=== PATIENT | male | born 1935 | race Caucasian/White ===

== ENCOUNTER 2016-03-30 19:12 | Inpatient (IN) | payer OTHER ==
[2016-03-30 19:27] VITALS: BMI 25.2
[2016-03-30 21:00] LABS: MCH 29.2 pg (25.7-33.7); MCHC 31.7 g/dl (32.0-35.9); MEAN PLT VOLUME 7.9 fl (7.5-11.1); PLATELET COUNT 262 K/MM3 (134-434); RDW 17.8 % (11.9-15.9); WHITE BLOOD COUNT 15.2 K/mm3 (4.0-10.0)
[2016-03-30 21:34] LABS: ALBUMIN 2.7 g/dl (3.4-5.0); CALCIUM 8.4 mg/dL (8.5-10.1); CREATININE 1.3 mg/dL (0.7-1.3)
[2016-03-30 21:39] LABS: BILIRUBIN,TOTAL 0.6 mg/dL (0.2-1.0); TOT PROT 4.7 g/dl (6.4-8.2); TROPONIN I 0.02 ng/ml (0.00-0.05)
[2016-03-30 22:25] LABS: INR 1.41 (0.82-1.09); PROTHROMBIN TIME (PATIENT) 15.6 SEC (9.98-11.88)
[2016-03-30 22:27] LABS: ACTIVATED PTT 23.6 SECONDS (26.9-34.4)
--- NOTE | 2016-03-30 22:39 | PDOC ---
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 The patient was recently admitted and discharged. He had a CTA performed which showed his AAA repair and an untreated left iliac artery aneurysm. The patient was observed and discharged. The patient is not the greatest historian. He denies chest pain, shortness of breath, headache and dizziness. He denies fever, chills, nausea, vomit, diarrhea and constipation. He denies dysuria, frequency, urgency and hematuria. PCP - Dr. Muñiz <Binta Herrera - Last Filed: 03/31/16 00:00> - General History Source: Patient, Old Records Exam Limitations: Dementia <Elmer Sanchez - Last Filed: 03/31/16 00:49> - General Chief Complaint: Pain, Acute Stated Complaint: S.O.B. 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) HTN: Yes Hypercholesterolemia: Yes Suicide Attempt (Hx): No - Surgical History Abdominal Surgery: Yes (Hernia Repair) Cardiac Surgery: Yes (Stent) - Immunization History Immunization Up to Date: Yes - Psycho/Social/Smoking Cessation Hx Anxiety: No Suicidal Ideation: No Smoking History: Former smoker Have you smoked in the past 12 months: No Number of Cigarettes Smoked Daily: 30 If you are a former smoker, when did you quit?: 13 yrs ago Cigars Per Day: 0 Information on smoking cessation initiated: No Hx Alcohol Use: No Drug/Substance Use Hx: No Substance Use Type: None Hx Substance Use Treatment: No <Elmer Sanchez - Last Filed: 03/31/16 00:49> - Past Medical History Allergies/Adverse Reactions: Allergies Allergy/AdvReac Type Severity Reaction Status Date / Time No Known Allergies Allergy Verified 03/30/16 19:35 Home Medications: Ambulatory Orders Acetaminophen [Pain Relief] 650 mg PO Q6H PRN 02/16/16 Aspirin [Aspirin EC] 81 mg PO DAILY 02/16/16 Bisacodyl [Correctol] 5 mg PO DAILY PRN 02/16/16 Mometasone Furoate [Asmanex] 1 inh IH BID 02/16/16 Albuterol 2.5/Ipratropium 0.5 [Duoneb -] 1 amp NEB QIDR amp 03/27/16 Atorvastatin Ca [Lipitor] 10 mg PO HS tablet 03/27/16 Isosorbide Mononitrate [Imdur -] 30 mg PO DAILY tab.sr.24h 03/27/16 Labetalol HCl [Normodyne -] 100 mg PO DAILY tablet 03/27/16 Lisinopril [Prinivil] 5 mg PO DAILY tablet 03/27/16 Metronidazole [Flagyl -] 500 mg PO TID #27 tablet 03/27/16 Pantoprazole Sodium [Protonix] 40 mg PO DAILY #30 tablet. 03/27/16 Prednisone 10 mg PO DAILY #32 tablet 03/27/16 Roflumilast [Daliresp -] 500 mcg PO DAILY tablet 03/27/16 Review of Systems - Review of Systems Able to Perform ROS?: Yes Comments:: 03/30/16 23:15 GENERAL/CONSTITUTIONAL: No fever or chills. No weakness. HEAD, EYES, EARS, NOSE AND THROAT: No change in vision. No ear pain or discharge. No sore throat. CARDIOVASCULAR: No chest pain or shortness of breath. RESPIRATORY: No cough, wheezing, or hemoptysis. GASTROINTESTINAL: No nausea, vomiting, diarrhea or constipation. GENITOURINARY: No dysuria, frequency, or change in urination. MUSCULOSKELETAL: No joint or muscle swelling or pain. No neck or back pain. SKIN: No rash NEUROLOGIC: No headache, vertigo, loss of consciousness, or change in strength/ sensation. ENDOCRINE: No increased thirst. No abnormal weight change. HEMATOLOGIC/LYMPHATIC: No anemia, easy bleeding, or history of blood clots. ALLERGIC/IMMUNOLOGIC: No hives or skin allergy. <Binta Herrera - Last Filed: 03/31/16 00:00> *Physical Exam - Vital Signs Last Vital Signs Temp Pulse Resp BP Pulse Ox 110 H 18 113/68 97 03/30/16 19:21 03/30/16 19:21 03/30/16 19:21 03/30/16 19:21 - Physical Exam Comments: 03/30/16 23:15 GENERAL: Awake, alert, and fully oriented, in no acute distress HEAD: No signs of trauma EYES: PERRLA, EOMI, sclera anicteric, conjunctiva clear ENT: Auricles normal inspection, hearing grossly normal, nares patent, oropharynx clear without exudates. Moist mucosa NECK: Normal ROM, supple, no lymphadenopathy, JVD, or masses LUNGS: (+) Tachypnea. Breath sounds equal, clear to auscultation bilaterally. No wheezes, and no crackles HEART: Regular rate and rhythm, normal S1 and S2, no murmurs, rubs or gallops ABDOMEN: (+) multiple ecchymosis over diffuse abdomen. Soft, nontender, normoactive bowel sounds. No guarding, no rebound. No masses EXTREMITIES: (+) 2+ edema RLE, trace pedal edema LLE, Normal range of motion. No clubbing or cyanosis. No cords, erythema, or tenderness NEUROLOGICAL: Cranial nerves II-XII intact. Normal speech, normal gait. Sensation intact in upper and lower extremities. 5/5 motor strength in upper and lower extremities. No pronator drift. Finger to nose intact. Rapid alternations intact. SKIN: Warm, Dry, normal turgor, no rashes or lesions noted. <Binta Herrera - Last Filed: 03/31/16 00:00> - Vital Signs Last Vital Signs Temp Pulse Resp BP Pulse Ox 110 H 18 113/68 97 03/30/16 19:21 03/30/16 19:21 03/30/16 19:21 03/30/16 19:21 <Elmer Sanchez - Last Filed: 03/31/16 00:49> Heart Score/ECG Review #1 ECG reviewed & interpreted by me at: 20:10 03/31/16 00:22 NSR 91, Q wave V1-V2, no std/ellen, normal axis, normal intervals, QTC 452 msec <Elmer Sanchez - Last Filed: 03/31/16 00:49> ED Treatment Course - LABORATORY CBC & Chemistry Diagram: 03/30/16 20:49 03/30/16 20:49 - ADDITIONAL ORDERS Additional order review: Laboratory Results 03/30/16 03/30/16 03/30/16 20:49 20:49 20:49 INR 1.41 H PTT (Actin FS) 23.6 L Sodium 143 Potassium 3.5 Chloride 103 Carbon Dioxide 33 H Anion Gap 7 L BUN 30 H Creatinine 1.3 D Creat Clearance w eGFR 53.39 Random Glucose 134 H Lactic Acid 1.964 Calcium 8.4 L Total Bilirubin 0.6 D AST 25 D ALT 19 Alkaline Phosphatase 55 Creatine Kinase 57 Troponin I 0.02 Total Protein 4.7 L Albumin 2.7 L 03/30/16 20:49 RBC 3.56 L MCV 92.0 MCHC 31.7 L RDW 17.8 H MPV 7.9 Neutrophils % 85.0 H Lymphocytes % 5.0 L D Monocytes % 4.0 - RADIOLOGY Radiograph Interpretation: 03/31/16 00:00 CT chest, abdomen and pelvis without contrast was read by Ata Luo MD 03/30/2016 23:54 EST COMPARISON: none FINDINGS: CT chest:There is no aortic aneurysm. There is no significant mediastinal or hilar adenopathy. The heart size is normal. The trachea and bronchi are patent. There is no pleural or pericardial effusion. Severe diffuse emphysema is noted. There is a 2.4 x 2.17 spiculated mass in the lateral base of the left upper lobe tethering to the subjacent pleura, highly suspicious for malignant neoplasm. There is scarring in the right lung apex. CT abdomen and pelvis: Status post left nephrectomy. Normal unenhanced liver, gallbladder, pancreas, spleen, adrenal glands and right kidney. The stomach and small bowel are normal. There is moderate inflammation the right colon and proximal transverse colon which may be due to infection or ischemia. No bowel obstruction. There is a small amount of ascites but no abscess or free air. There is a 7.5 x 7.4 cm distal aortic right common iliac artery aneurysm which has been stented without evidence of leak There is any 2.4 cm left internal iliac artery aneurysm aortic aneurysm. There is no significant retroperitoneal lymphadenopathy. There is no evidence of appendicitis, although the appendix is not clearly visualized. The urinary bladder and prostate gland are normal. There is no significant pelvic lymphadenopathy. IMPRESSION: 2.4 cm left upper lobe mass is highly suspicious for primary lung neoplasm. Severe emphysema. Moderate proximal colitis may be due to infection or ischemia. Small amount of ascites without abscess or free air. Stented 7.5 cm distal aortic and right common iliac artery aneurysm without evidence of leak. 2.4 cm left internal iliac artery aneurysm. <Binta Herrera - Last Filed: 03/31/16 00:00> - LABORATORY CBC & Chemistry Diagram: 03/30/16 20:49 03/30/16 20:49 - ADDITIONAL ORDERS Additional order review: Laboratory Results 03/30/16 03/30/16 20:49 20:49 Sodium 143 Potassium 3.5 Chloride 103 Carbon Dioxide 33 H Anion Gap 7 L BUN 30 H Creatinine 1.3 D Creat Clearance w eGFR 53.39 Random Glucose 134 H Lactic Acid 1.964 Calcium 8.4 L Total Bilirubin 0.6 D AST 25 D ALT 19 Alkaline Phosphatase 55 Creatine Kinase 57 Troponin I 0.02 Total Protein 4.7 L Albumin 2.7 L 03/30/16 20:49 RBC 3.56 L MCV 92.0 MCHC 31.7 L RDW 17.8 H MPV 7.9 Neutrophils % 85.0 H Lymphocytes % 5.0 L D Monocytes % 4.0 - RADIOLOGY Radiology Studies Ordered: Category Date Time Status ABDOMEN & PELVIS CT W/O CONTR [CT] Stat CT Scan 03/30/16 22:[address] WITHOUT CONTRAST [CT] Stat CT Scan 03/30/16 22:13 Ordered CHEST X-RAY PORTABLE* [RAD] Stat Radiology 03/30/16 19:47 Taken <Elmer Sanchez - Last Filed: 03/31/16 00:49> Medical Decision Making - Medical Decision Making 03/30/16 22:38 A portion of this note was documented by scribe services under my direction. I have reviewed the details of the note, within reason, and agree with the documentation with the following case summary and management plan written by me. Patient treated in the ED. Nursing notes are reviewed and incorporated into the medical decision-making. Vital signs reviewed. Peripheral IV access obtained by the nurse, laboratory studies are drawn and sent, reviewed and interpreted by myself. Vital Signs Temp Pulse Resp BP Pulse Ox 110 H 18 113/68 97 03/30/16 19:21 03/30/16 19:21 03/30/16 19:21 03/30/16 19:21 80 year old male with PMH of HTN, HLD, CAD s/p stent, CKD, AAA, COPD on 2L home oxygen presents to the ED for abdominal pain, mainly in the right lower quadrant and some SOB. The patient was recently admitted and discharged. He had a CTA performed which showed his AAA repair and an untreated left iliac artery aneurysm. He was evaluated by vascular surgery at that time and was cleared. The patient was observed and discharged. The patient not the greatest historian but reports that today he has had persistent RLQ pain and some SOB. Denies chest pain. Unable to further characterize. Given the history of untreated left iliary artery aneurmsym and persistent abdominal pain, will repeat CT to r/o AAA leak (though probably less likely). Will obtain labs including WBC( as pt has had elevated WBC on prior visit). Will need to RG. Will evaluate with chest xray and ECG and admit to the hospital for further evaluation. 03/31/16 00:23 CBC, BMP 03/30/16 20:49 03/30/16 20:49 CMP Sodium 143 mmol/L (136-145) 03/30/16 20:49 Potassium 3.5 mmol/L (3.5-5.1) 03/30/16 20:49 Chloride 103 mmol/L (98-107) 03/30/16 20:49 Carbon Dioxide 33 mmol/L (21-32) H 03/30/16 20:49 Anion Gap 7 (8-16) L 03/30/16 20:49 BUN 30 mg/dL (7-18) H 03/30/16 20:49 Creatinine 1.3 mg/dL (0.7-1.3) D 03/30/16 20:49 Creat Clearance w eGFR 53.39 (>60) 03/30/16 20:49 Random Glucose 134 mg/dL (74-106) H 03/30/16 20:49 Lactic Acid 1.964 mmol/L (0.4-2.0) 03/30/16 20:49 Calcium 8.4 mg/dL (8.5-10.1) L 03/30/16 20:49 Total Bilirubin 0.6 mg/dL (0.2-1.0) D 03/30/16 20:49 AST 25 U/L (15-37) D 03/30/16 20:49 ALT 19 U/L (12-78) 03/30/16 20:49 Alkaline Phosphatase 55 U/L (45-117) 03/30/16 20:49 Creatine Kinase 57 IU/L (39-308) 03/30/16 20:49 Troponin I 0.02 ng/ml (0.00-0.05) 03/30/16 20:49 Total Protein 4.7 g/dl (6.4-8.2) L 03/30/16 20:49 Albumin 2.7 g/dl (3.4-5.0) L 03/30/16 20:49 CT scan shows a 2.4 x 1.27 spiculate mass in the left upper base which appears to be larger than the one in Dec 2015. The aorta appears stable at this time. CT scan demonstrates moderate colitis, infectious vs. ischemic. Given last GI note, will need to trend lactates and watch abdomen. Will draw blood cultures and give IV zosyn and IV flagyl. Case discussed with Dr. Campoverde. He accepts patient for med/surg admission. He was made aware of the spictulate mass findings in the lung. Case discussed in detail with admitting physician including history, physical exam and ancillary studies. Admitting physician has assumed care for the patient, will follow all pending diagnostics and will complete the evaluation and treatment. <Elmer Sanchez - Last Filed: 03/31/16 00:49> *DC/Admit/Observation/Transfer - Attestations Scribe Attestion: 03/30/16 23:17 Documentation prepared by Binta Herrera, acting as biomedical field service engineer for Elmer Sanchez MD, MD <Binta Herrera - Last Filed: 03/31/16 00:00> - Discharge Dispostion Admit: Yes <Elmer Sanchez - Last Filed: 03/31/16 00:49> Diagnosis at time of Disposition: Non-specific colitis, Lung mass - Discharge Dispostion Condition at time of disposition: Stable - Referrals Referrals: Shawn Muñiz MD [Primary Care Provider] -
[2016-03-31] MEDS ORDERED: METRONIDAZOLE 500 MG PREMIXED 100 ML IVPB ONE ×2 (00:48→00:53)
[2016-03-31] MEDS ORDERED: PIPERACILLIN/TAZOB 3.375 GM/50 ML PRE-DOCKED IVPB ONE (00:49)
[2016-03-31] MEDS ORDERED: PIPERACILLIN/TAZOB 3.375 GM 50 ML IVPB ONE (00:53)
[2016-03-31 01:35] LABS: URINE APPEARANCE CLEAR; URINE BILIRUBIN 1+ (NEGATIVE); URINE BLOOD NEGATIVE (NEGATIVE); URINE COLOR DK. ORANGE; URINE GLUCOSE (UA) NEGATIVE (NEGATIVE); URINE KETONE TRACE (NEGATIVE); URINE LEUK ESTERASE NEGATIVE (NEGATIVE); URINE NITRITE POSITIVE (NEGATIVE); URINE PROTEIN TRACE (NEGATIVE); URINE UROBILINOGEN 0.2 E.U/dl E.U./dl (0.2-1.0)
[2016-03-31 01:51] LABS: URINE BACTERIA FEW /hpf (NONE SEEN); URINE HYALINE CAST 1 /lpf; URINE MUCUS RARE; URINE RBC 1 /hpf (0-3); URINE WBC 1 /hpf (3-5)
[2016-03-31] MEDS ORDERED: BISACODYL 5 MG TABLET.DR (FP) PO PRN (02:22)
[2016-03-31] MEDS ORDERED: ACETAMINOPHEN 325 MG TABLET (FP) PO PRN (02:22)
[2016-03-31] MEDS ORDERED: PT OWN MED DRAWER 7, Y5N ONE ×2 (05:50→09:14)
[2016-03-31] MEDS ORDERED: metroNIDAZOLE 500 MG TABLET PO SCH (06:00)
[2016-03-31] MEDS: metroNIDAZOLE 250 MG TABLET PO SCH ×2 (06:16→14:49)
[2016-03-31 07:41] LABS: MCH 30.2 pg (25.7-33.7); MCHC 32.7 g/dl (32.0-35.9); MEAN CELL VOLUME 92.4 fl (80-96); MEAN PLT VOLUME 7.9 fl (7.5-11.1); PLATELET COUNT 222 K/MM3 (134-434); WHITE BLOOD COUNT 11.8 K/mm3 (4.0-10.0)
[2016-03-31 08:05] LABS: ALBUMIN 2.5 g/dl (3.4-5.0); ANION GAP 6 (8-16); CALCIUM 8.1 mg/dL (8.5-10.1); CO2 33 mmol/L (21-32); GLUCOSE,RANDOM 85 mg/dL (74-106)
[2016-03-31 08:12] LABS: ALK PHOS 49 U/L (45-117); BILIRUBIN,TOTAL 0.6 mg/dL (0.2-1.0); CREATININE 1.1 mg/dL (0.7-1.3); SGOT/AST 21 U/L (15-37); SGPT/ALT 18 U/L (12-78); TOT PROT 4.5 g/dl (6.4-8.2); TROPONIN I 0.02 ng/ml (0.00-0.05)
[2016-03-31 09:39] LABS: METAMYELOCYTE 4 % (0-2)
[2016-03-31] MEDS: ASPIRIN COATED 81 MG TABLET.EC PO SCH (09:51)
[2016-03-31] MEDS: PANTOPRAZOLE 40 MG TABLET (FP) PO SCH (09:51)
[2016-03-31] MEDS: ISOSORBIDE MONONITRATE 30 MG TAB.SR.24H (FP) PO SCH (09:51)
[2016-03-31] MEDS: LABETALOL HCL 100 MG TABLET (FP) PO SCH (09:51)
[2016-03-31] MEDS: LISINOPRIL 5 MG TABLET (FP) PO SCH (09:51)
[2016-03-31] MEDS: ROFLUMILAST 500 MCG TABLET PO SCH (09:52)
[2016-03-31] MEDS: MOMETASONE FUROATE 220 MCG/IH INHALER IH SCH ×2 (09:52→22:00)
[2016-03-31] MEDS ORDERED: predniSONE 10 MG TABLET (UD) PO SCH (10:00)
--- NOTE | 2016-03-31 10:07 | EKG ---
Test Reason : Blood Pressure : / mmHG Vent. Rate : 091 BPM Atrial Rate : 091 BPM P-R Int : 120 ms QRS Dur : 080 ms QT Int : 368 ms P-R-T Axes : 061 026 041 degrees QTc Int : 452 ms NORMAL SINUS RHYTHM SEPTAL INFARCT , AGE UNDETERMINED ABNORMAL ECG WHEN COMPARED WITH ECG OF 24-MAR-2016 07:56, T WAVE INVERSION NO LONGER EVIDENT IN INFERIOR LEADS Confirmed by MD DIANE, SHASHA ([id number]) on 03/31/2016 10:07:20 AM Referred By: Overread By: SHASHA CONTRERAS MD
[2016-03-31] MEDS: ALBUTEROL SO4 2.5/IPRATROPIUM 0.5 INH SOL 3 ML VIAL.NEB. NEB SCH ×2 (11:01→17:10)
--- NOTE | 2016-03-31 11:55 | CONSULT ---
Consult Consult Specialty:: PULMONARY Referred by:: NORMA Reason for Consultation:: SOB/COPD - History of Present Illness Chief Complaint: SOB/COUGH/ABD PAIN History of Present Illness: 80 [place] SPEAKING MALE JUST DISCHARGED 4 DAYS AGO WHEN HE HAD BEEN ADMITTED FOR SOB/ABD PAIN. W/U AT THE TIME WAS COMPLETED. HE PRESENTS TODAY WITH THE SAME COMPLAINTS. 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 No: AFIB Pulmonary: Yes: Asthma, COPD, O2 Dependent Gastrointestinal: Yes: GERD, Other (COLITIS) Renal/: Yes: Renal Inusuff, Renal Calculi Heme/Onc: Yes: Anemia Psych: No: Addictions Endocrine: Yes: Diabetes Mellitus Additional Medical History: takes asa daily - Past Surgical History Past Surgical History: Yes: Nephrectomy (Left as child for infectiion back in [place]) - Alcohol/Substance Use Hx Alcohol Use: No History of Substance Use: reports: None - Smoking History Smoking history: Former smoker Have you smoked in the past 12 months: No Aproximately how many cigarettes per day: 30 If you are a former smoker, when did you quit?: 13 yrs ago - Social History Usual Living Arrangement: With Child ADL: Independent 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 Place of : Other History of Recent Travel: No Home Medications - Allergies Allergies/Adverse Reactions: Allergies Allergy/AdvReac Type Severity Reaction Status Date / Time No Known Allergies Allergy Verified 03/30/16 19:35 - Home Medications Home Medications: Ambulatory Orders Acetaminophen [Pain Relief] 650 mg PO Q6H PRN 02/16/16 Aspirin [Aspirin EC] 81 mg PO DAILY 02/16/16 Bisacodyl [Correctol] 5 mg PO DAILY PRN 02/16/16 Mometasone Furoate [Asmanex] 1 inh IH BID 02/16/16 Albuterol 2.5/Ipratropium 0.5 [Duoneb -] 1 amp NEB QIDR amp 03/27/16 Atorvastatin Ca [Lipitor] 10 mg PO HS tablet 03/27/16 Isosorbide Mononitrate [Imdur -] 30 mg PO DAILY tab.sr.24h 03/27/16 Labetalol HCl [Normodyne -] 100 mg PO DAILY tablet 03/27/16 Lisinopril [Prinivil] 5 mg PO DAILY tablet 03/27/16 Metronidazole [Flagyl -] 500 mg PO TID #27 tablet 03/27/16 Pantoprazole Sodium [Protonix] 40 mg PO DAILY #30 tablet. 03/27/16 Prednisone 10 mg PO DAILY #32 tablet 03/27/16 Roflumilast [Daliresp -] 500 mcg PO DAILY tablet 03/27/16 Family Disease History - Family Disease History Family Disease History: Other: Father ( 80's), Mother (") Review of Systems Unable to obtain ROS, reason: UNABLE TO OBTAIN Physical Exam Vital Sings: Vital Signs Temperature 98.4 F 03/31/16 06:00 Pulse Rate 93 H 03/31/16 11:00 Respiratory Rate 18 03/31/16 06:00 Blood Pressure 133/70 03/31/16 06:00 O2 Sat by Pulse Oximetry (%) 98 03/31/16 11:00 Constitutional: Yes: Anxious Eyes: Yes: Conjunctiva Clear, EOM Intact HENT: Yes: Normocephalic Neck: Yes: Trachea Midline Cardiovascular: Yes: S1, S2 Respiratory: Yes: Diminished (DIFFUSE BILATERAL) Gastrointestinal: Yes: Tenderness (TO PALPATION) Edema: LLE: 1+, RLE: 1+ Labs: CBC, BMP 03/31/16 06:00 03/31/16 06:00 Imaging - Results Chest X-ray: Image Reviewed Cat Scan: Image Reviewed EKG: Report Reviewed Problem List - Problems (1) Colitis Code(s): K52.9 - NONINFECTIVE GASTROENTERITIS AND COLITIS, UNSPECIFIED (2) Lung mass Code(s): R91.8 - OTHER NONSPECIFIC ABNORMAL FINDING OF LUNG FIELD (3) Abdominal pain Code(s): R10.9 - UNSPECIFIED ABDOMINAL PAIN Qualifiers: Abdominal location: generalized Qualified Code(s): R10.84 - Generalized abdominal pain (4) Asthma exacerbation in COPD Code(s): J44.1 - CHRONIC OBSTRUCTIVE PULMONARY DISEASE W (ACUTE) EXACERBATION J45.901 - UNSPECIFIED ASTHMA WITH (ACUTE) EXACERBATION (5) CAD S/P percutaneous coronary angioplasty Code(s): I25.10 - ATHSCL HEART DISEASE OF [place] CORONARY ARTERY W/O ANG PCTRS Z98.61 - CORONARY ANGIOPLASTY STATUS Assessment/Plan A/P Abdominal Pain/colitis ? ischemic AAA s/p EVAR Acute on Chronic Hypoxic Respiratory Failure CAD h/o nephrectomy RUL Lung Nodule -> suspicious for malignancy - Medrol 20 mg Q8 - inhaled bronchodilators - O2 to keep SpO2 >90% - BiPAP as needed to assist in work of breathing - pain control - DVT prophylaxis - Will need follow up of RUL lesion after he is stable (will be following at [facility]). - GI opinion Fantasma SPENCER MD
[2016-03-31] MEDS: methylPREDNISolone NA SUCC 40 MG/1 ML VIAL IVPB SCH ×2 (12:50→18:09)
--- NOTE | 2016-03-31 13:09 | HP ---
Admitting History and Physical - Primary Care Physician PCP: Kassandra Sanders - Admission Chief Complaint: ABD PAIN/RECTAL BLEED History of Present Illness: 80 Y/O MALE HISTORY OF LONG TIME TOBACCO USE PRESENTS WITH ABDOMINAL PAIN WITH RECTAL BLEED, AND DYSPNEA. PATIENT DIAGNOSED WITH LUNG MASS 4 MONTHS AGO AND WAS SCHEDULED IN [facility] FOR LUNG VOLUME REDUCTION AND BIOPSY BUT NEVER WENT AND HE AND HIS FAMILY HAVE REFUSED AND AGGRESSIVE INTERVENTIONS. 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 No: AFIB Pulmonary: Yes: Asthma, COPD, O2 Dependent Gastrointestinal: Yes: GERD, Other (COLITIS) Renal/: Yes: Renal Inusuff, Renal Calculi Heme/Onc: Yes: Anemia Psych: No: Addictions Endocrine: Yes: Diabetes Mellitus - Past Surgical History Past Surgical History: Yes: Nephrectomy (Left as child for infectiion back in [place]) - Smoking History Smoking history: Former smoker Have you smoked in the past 12 months: No Aproximately how many cigarettes per day: 30 If you are a former smoker, when did you quit?: 13 yrs ago - Alcohol/Substance Use Hx Alcohol Use: No History of Substance Use: reports: None - Social History ADL: Independent 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 History of Recent Travel: No Home Medications - Allergies Allergies/Adverse Reactions: Allergies Allergy/AdvReac Type Severity Reaction Status Date / Time No Known Allergies Allergy Verified 03/30/16 19:35 - Home Medications Home Medications: Ambulatory Orders Acetaminophen [Pain Relief] 650 mg PO Q6H PRN 02/16/16 Aspirin [Aspirin EC] 81 mg PO DAILY 02/16/16 Bisacodyl [Correctol] 5 mg PO DAILY PRN 02/16/16 Mometasone Furoate [Asmanex] 1 inh IH BID 02/16/16 Albuterol 2.5/Ipratropium 0.5 [Duoneb -] 1 amp NEB QIDR amp 03/27/16 Atorvastatin Ca [Lipitor] 10 mg PO HS tablet 03/27/16 Isosorbide Mononitrate [Imdur -] 30 mg PO DAILY tab.sr.24h 03/27/16 Labetalol HCl [Normodyne -] 100 mg PO DAILY tablet 03/27/16 Lisinopril [Prinivil] 5 mg PO DAILY tablet 03/27/16 Metronidazole [Flagyl -] 500 mg PO TID #27 tablet 03/27/16 Pantoprazole Sodium [Protonix] 40 mg PO DAILY #30 tablet. 03/27/16 Prednisone 10 mg PO DAILY #32 tablet 03/27/16 Roflumilast [Daliresp -] 500 mcg PO DAILY tablet 03/27/16 Family Disease History - Family Disease History Family Disease History: Other: Father ( 80's), Mother (") Review of Systems - Review of Systems Constitutional: reports: Weakness Eyes: reports: No Symptoms HENT: reports: No Symptoms Neck: reports: No Symptoms Cardiovascular: reports: Shortness of Breath Respiratory: reports: Cough, SOB, SOB on Exertion Gastrointestinal: reports: Abdominal Pain, Rectal Bleeding Genitourinary: reports: No Symptoms Musculoskeletal: reports: Muscle Weakness Integumentary: reports: No Symptoms Neurological: reports: Weakness Endocrine: reports: No Symptoms Hematology/Lymphatic: reports: No Symptoms Physical Examination Vital Signs: Vital Signs Temperature 98.4 F 03/31/16 06:00 Pulse Rate 93 H 03/31/16 11:00 Respiratory Rate 18 03/31/16 06:00 Blood Pressure 133/70 03/31/16 06:00 O2 Sat by Pulse Oximetry (%) 98 03/31/16 11:00 Constitutional: Yes: Moderate Distress Eyes: Yes: WNL HENT: Yes: WNL Neck: Yes: WNL Cardiovascular: Yes: Tachycardia Respiratory: Yes: Diminished, On Nasal O2, Poor Air Entry, Rales, SOB Gastrointestinal: Yes: Distention, Tenderness ...Rectal Exam: Yes: Other Musculoskeletal: Yes: Muscle Weakness Extremities: Yes: WNL Edema: Yes Peripheral Pulses WNL: Yes Integumentary: Yes: WNL Wound/Incision: Yes: Clean/Dry Neurological: Yes: WNL ...Motor Strength: WNL Psychiatric: Yes: WNL Labs: CBC, BMP 03/31/16 06:00 03/31/16 06:00 Imaging - Results Cat Scan: Report Reviewed Problem List - Problems (1) Colitis Code(s): K52.9 - NONINFECTIVE GASTROENTERITIS AND COLITIS, UNSPECIFIED (2) Lung mass Code(s): R91.8 - OTHER NONSPECIFIC ABNORMAL FINDING OF LUNG FIELD (3) AAA (abdominal aortic aneurysm) without rupture Code(s): I71.4 - ABDOMINAL AORTIC ANEURYSM, WITHOUT RUPTURE (4) Abdominal pain Code(s): R10.9 - UNSPECIFIED ABDOMINAL PAIN Qualifiers: Abdominal location: generalized Qualified Code(s): R10.84 - Generalized abdominal pain (5) Acute on chronic respiratory failure with hypoxia and hypercapnia Code(s): J96.21 - ACUTE AND CHRONIC RESPIRATORY FAILURE WITH HYPOXIA J96.22 - ACUTE AND CHRONIC RESPIRATORY FAILURE WITH HYPERCAPNIA (6) Acute respiratory failure with hypercapnia Code(s): J96.02 - ACUTE RESPIRATORY FAILURE WITH HYPERCAPNIA (7) Asthma exacerbation in COPD Code(s): J44.1 - CHRONIC OBSTRUCTIVE PULMONARY DISEASE W (ACUTE) EXACERBATION J45.901 - UNSPECIFIED ASTHMA WITH (ACUTE) EXACERBATION (8) CAD S/P percutaneous coronary angioplasty Code(s): I25.10 - ATHSCL HEART DISEASE OF [place] CORONARY ARTERY W/O ANG PCTRS Z98.61 - CORONARY ANGIOPLASTY STATUS (9) COPD exacerbation Code(s): J44.1 - CHRONIC OBSTRUCTIVE PULMONARY DISEASE W (ACUTE) EXACERBATION (10) Chronic kidney disease Code(s): N18.9 - CHRONIC KIDNEY DISEASE, UNSPECIFIED (11) Emphysema of lung Code(s): J43.9 - EMPHYSEMA, UNSPECIFIED Assessment/Plan IV ABX FOR ACUTE COLITIS LIQUID DIET STEROIDS NEBS RESP SUPPORT GI EVAL SNF TO [facility]
[2016-03-31] MEDS: LEVOFLOXACIN 500 MG IVPB 100 ML IVPB SCH (13:15)
[2016-03-31] MEDS: METRONIDAZOLE 500 MG PREMIXED 100 ML IVPB SCH ×2 (14:49→18:09)
--- NOTE | 2016-03-31 17:06 | CONSULT ---
Consult Consult Specialty:: GI Referred by:: Dr Sanders Reason for Consultation:: Abdominal pain - History of Present Illness History of Present Illness: 80 M seen last week for same problem, now back with abdominal pain. He has a h/ o AAA, CAD with stent, O2-dependent COPD, CKD and HTN, now with abdominal pain and a CT c/w regional [id number] which I believe has an ischemic etiology. Rec IVF and Ab Rx at this time. Poor candidated for procedures - History Source History Provided By: Medical Record Limitations to Obtaining History: No Limitations - Past Medical History DEAF INTERPRETER: No: Alzheimer's Cardio/Vascular: Yes: CAD (stent). No: AFIB Pulmonary: Yes: Asthma, COPD, O2 Dependent Gastrointestinal: Yes: GERD, Other (COLITIS) Renal/: Yes: Renal Inusuff, Renal Calculi Psych: No: Addictions Endocrine: Yes: Diabetes Mellitus Additional Medical History: takes asa daily - Past Surgical History Past Surgical History: Yes: Nephrectomy (Left as child for infectiion back in [place]) - Alcohol/Substance Use Hx Alcohol Use: No History of Substance Use: reports: None - Smoking History Smoking history: Former smoker Have you smoked in the past 12 months: No Aproximately how many cigarettes per day: 30 If you are a former smoker, when did you quit?: 13 yrs ago - Social History Usual Living Arrangement: With Child ADL: Independent 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 History of Recent Travel: No Home Medications - Allergies Allergies/Adverse Reactions: Allergies Allergy/AdvReac Type Severity Reaction Status Date / Time No Known Allergies Allergy Verified 03/30/16 19:35 - Home Medications Home Medications: Ambulatory Orders Acetaminophen [Pain Relief] 650 mg PO Q6H PRN 02/16/16 Aspirin [Aspirin EC] 81 mg PO DAILY 02/16/16 Bisacodyl [Correctol] 5 mg PO DAILY PRN 02/16/16 Mometasone Furoate [Asmanex] 1 inh IH BID 02/16/16 Albuterol 2.5/Ipratropium 0.5 [Duoneb -] 1 amp NEB QIDR amp 03/27/16 Atorvastatin Ca [Lipitor] 10 mg PO HS tablet 03/27/16 Isosorbide Mononitrate [Imdur -] 30 mg PO DAILY tab.sr.24h 03/27/16 Labetalol HCl [Normodyne -] 100 mg PO DAILY tablet 03/27/16 Lisinopril [Prinivil] 5 mg PO DAILY tablet 03/27/16 Metronidazole [Flagyl -] 500 mg PO TID #27 tablet 03/27/16 Pantoprazole Sodium [Protonix] 40 mg PO DAILY #30 tablet. 03/27/16 Prednisone 10 mg PO DAILY #32 tablet 03/27/16 Roflumilast [Daliresp -] 500 mcg PO DAILY tablet 03/27/16 Family Disease History - Family Disease History Family Disease History: Other: Father ( 80's), Mother (") Physical Exam-GI Vital Signs: Vital Signs Temperature 97.8 F 03/31/16 15:02 Pulse Rate 85 03/31/16 15:02 Respiratory Rate 20 03/31/16 15:02 Blood Pressure 91/50 03/31/16 15:02 O2 Sat by Pulse Oximetry (%) 98 03/31/16 11:00 Constitutional: Yes: Well Nourished, Mild Distress (Patient with PBA, with frequent crying episodes) Cardiovascular: Yes: Regular Rate and Rhythm Respiratory: Yes: CTA Bilaterally Gastrointestinal Inspection: Yes: Distention (mild) ...Auscultate: Yes: Hypoactive Bowel Sounds ...Palpate: Yes: Soft, Tenderness (diffuse) Labs: CBC, BMP 03/31/16 06:00 03/31/16 06:00 INR, PTT INR 1.41 (0.82-1.09) H 03/30/16 20:49 Imaging - Results Cat Scan: Report Reviewed (R sided colitis) Assessment/Plan 80 M consulted on last week for same problem He has a h/o severe vascular disease I believe his regional colitis is ischemic in nature. Rec hydration and AbRx Procedure risks outweigh benefits Stool for C diff
--- NOTE | 2016-03-31 17:44 | CONSULT ---
Consult Consult Specialty:: Nephrology Reason for Consultation:: CKD - History of Present Illness Chief Complaint: abdominal discomfort History of Present Illness: Pt is a 80 year old male with pmhx of HTN, CKD, chol, CAD, and AAA who presents with shortness of breath and right lower abdominal pain. He was found to have colitis. I was called to evaluate him for elevated creatinine. Pt has a solitary kidney. He denies dysuria or hematuria. He complains of decreased appetite. Pt was recently discharged from the hospital. He was found to have elevated creatinine and I was called to evaluate him. He had a CTA of the abdomen on 03/24/16. - History Source History Provided By: Patient - Past Medical History Cardio/Vascular: Yes: CAD (stent) Pulmonary: Yes: Asthma, COPD, O2 Dependent Gastrointestinal: Yes: GERD, Other (COLITIS) Renal/: Yes: Renal Inusuff, Renal Calculi Psych: No: Addictions Endocrine: Yes: Diabetes Mellitus Additional Medical History: takes asa daily - Past Surgical History Past Surgical History: Yes: Nephrectomy (Left as child for infectiion back in [place]) - Alcohol/Substance Use Hx Alcohol Use: No History of Substance Use: reports: None - Smoking History Smoking history: Former smoker Have you smoked in the past 12 months: No Aproximately how many cigarettes per day: 30 If you are a former smoker, when did you quit?: 13 yrs ago - Social History Usual Living Arrangement: With Child ADL: Independent 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 History of Recent Travel: No Home Medications - Allergies Allergies/Adverse Reactions: Allergies Allergy/AdvReac Type Severity Reaction Status Date / Time No Known Allergies Allergy Verified 03/30/16 19:35 - Home Medications Home Medications: Ambulatory Orders Acetaminophen [Pain Relief] 650 mg PO Q6H PRN 02/16/16 Aspirin [Aspirin EC] 81 mg PO DAILY 02/16/16 Bisacodyl [Correctol] 5 mg PO DAILY PRN 02/16/16 Mometasone Furoate [Asmanex] 1 inh IH BID 02/16/16 Albuterol 2.5/Ipratropium 0.5 [Duoneb -] 1 amp NEB QIDR amp 03/27/16 Atorvastatin Ca [Lipitor] 10 mg PO HS tablet 03/27/16 Isosorbide Mononitrate [Imdur -] 30 mg PO DAILY tab.sr.24h 03/27/16 Labetalol HCl [Normodyne -] 100 mg PO DAILY tablet 03/27/16 Lisinopril [Prinivil] 5 mg PO DAILY tablet 03/27/16 Metronidazole [Flagyl -] 500 mg PO TID #27 tablet 03/27/16 Pantoprazole Sodium [Protonix] 40 mg PO DAILY #30 tablet.dr 03/27/16 Prednisone 10 mg PO DAILY #32 tablet 03/27/16 Roflumilast [Daliresp -] 500 mcg PO DAILY tablet 03/27/16 Family Disease History - Family Disease History Family Disease History: Other: Father ( 80's), Mother (") Review of Systems - Review of Systems Constitutional: reports: Chills Eyes: reports: No Symptoms HENT: reports: No Symptoms Neck: reports: No Symptoms Cardiovascular: reports: No Symptoms Respiratory: reports: SOB, SOB on Exertion Gastrointestinal: reports: Abdominal Pain Genitourinary: reports: No Symptoms Musculoskeletal: reports: Muscle Weakness Integumentary: reports: No Symptoms Neurological: reports: No Symptoms Endocrine: reports: No Symptoms Hematology/Lymphatic: reports: No Symptoms Physical Exam Vital Signs: Vital Signs Temperature 97.8 F 03/31/16 15:02 Pulse Rate 85 03/31/16 15:02 Respiratory Rate 20 03/31/16 15:02 Blood Pressure 91/50 03/31/16 15:02 O2 Sat by Pulse Oximetry (%) 98 03/31/16 11:00 Constitutional: Yes: Calm Eyes: Yes: Conjunctiva Clear HENT: Yes: Atraumatic Cardiovascular: Yes: S1, S2 Respiratory: Yes: Diminished, On Nasal O2 Gastrointestinal: Yes: Normal Bowel Sounds ...Rectal Exam: Yes: Erythema Musculoskeletal: Yes: Muscle Weakness Edema: No Neurological: Yes: Oriented Psychiatric: Yes: Oriented Labs: CBC, BMP 03/31/16 06:00 03/31/16 06:00 Laboratory Tests 03/30/16 03/31/16 03/31/16 20:49 01:00 06:00 WBC 11.8 H Hgb 10.7 L BUN 30 H Creatinine 1.3 D Urine Protein Trace H Urine Blood Negative 03/31/16 06:00 WBC Hgb BUN 26 H Creatinine 1.1 Urine Protein Urine Blood Imaging - Results Cat Scan: Report Reviewed Problem List - Problems (1) Colitis Code(s): K52.9 - NONINFECTIVE GASTROENTERITIS AND COLITIS, UNSPECIFIED (2) Lung mass Code(s): R91.8 - OTHER NONSPECIFIC ABNORMAL FINDING OF LUNG FIELD (3) Chronic kidney disease Code(s): N18.9 - CHRONIC KIDNEY DISEASE, UNSPECIFIED (4) Chronic respiratory failure with hypoxia Code(s): J96.11 - CHRONIC RESPIRATORY FAILURE WITH HYPOXIA (5) Diabetes Code(s): E11.9 - TYPE 2 DIABETES MELLITUS WITHOUT COMPLICATIONS (6) Emphysema of lung Code(s): J43.9 - EMPHYSEMA, UNSPECIFIED (7) Former smoker Code(s): Z87.891 - PERSONAL HISTORY OF NICOTINE DEPENDENCE (8) H/O hernia repair Code(s): Z98.89 - OTHER SPECIFIED POSTPROCEDURAL STATES * DO NOT USE * (9) HTN (hypertension) Code(s): I10 - ESSENTIAL (PRIMARY) HYPERTENSION Assessment/Plan Current Medications Generic Name Dose Route Start Last Admin Trade Name Freq PRN Reason Stop Dose Admin Acetaminophen 650 mg 03/31/16 02:22 Tylenol - PO Q6H PRN FEVER OR PAIN Albuterol/Ipratropium 1 amp 03/31/16 06:00 03/31/16 11:01 Duoneb - NEB 1 amp QIDR DIXON Administration Aspirin 81 mg 03/31/16 10:00 03/31/16 09:51 Ecotrin - PO 81 mg DAILY DIXON Administration Atorvastatin Calcium 10 mg 03/31/16 22:00 Lipitor - PO HS DIXON Bisacodyl 5 mg 03/31/16 02:22 Dulcolax - PO DAILY PRN CONSTIPATION Metronidazole 100 mls @ 100 mls/hr 03/31/16 13:15 03/31/16 14:49 Flagyl 500mg Premixed Ivpb - IVPB 100 mls/hr Q8H-IV DIXON Administration Levofloxacin 100 mls @ 100 mls/hr 03/31/16 13:15 03/31/16 13:15 Levaquin 500 Mg Premixed Ivpb - IVPB 100 mls/hr DAILY DIXON Administration Isosorbide Mononitrate 30 mg 03/31/16 10:00 03/31/16 09:51 Imdur - PO 30 mg DAILY DIXON Administration Labetalol HCl 100 mg 03/31/16 10:00 03/31/16 09:51 Normodyne - PO 100 mg DAILY DIXON Administration Lisinopril 5 mg 03/31/16 10:00 03/31/16 09:51 Prinivil PO 5 mg DAILY DIXON Administration Methylprednisolone Sodium Succinate 20 mg 03/31/16 12:15 03/31/16 12:50 Solu-Medrol - IVPB 20 mg Q8H-IV DIXON Administration Metronidazole 500 mg 03/31/16 06:00 03/31/16 14:49 Flagyl - PO Not Given TID DIXON Mirtazapine 7.5 mg 03/31/16 22:00 Remeron - PO HS DIXON Mometasone Furoate 1 puff 03/31/16 10:00 03/31/16 09:52 Asmanex 220mcg - IH Not Given BID DIXON Pantoprazole Sodium 40 mg 03/31/16 10:00 03/31/16 09:51 Protonix - PO 40 mg DAILY DIXON Administration Roflumilast 500 mcg 03/31/16 10:00 03/31/16 09:52 Daliresp - PO 500 mcg DAILY DIXON Administration Impression 1. CKD s/p left nephrectomy 2. Colitis 3. copd 4. AAA 5. nephrolithiasis 6. lung mass 7. proteinuria Plan - will start gentle hydration - baseline creatinine about 0.9 - repeat labs in am - GI evaluation - cont abx for now - send cultures - creatinine is improving - will follow Dr Jimenez
[2016-03-31] MEDS: POTASSIUM CHLORIDE 10 MEQ in SODIUM CHLORIDE 0.45% 1,000 ML IVPB SCH (18:13)
[2016-03-31] MEDS: ATORVASTATIN CA 10 MG TABLET (FP) PO SCH (23:19)
[2016-03-31] MEDS: MIRTAZAPINE 15 MG TABLET (FP) PO SCH (23:20)
[2016-04-01] MEDS: ALBUTEROL SO4 2.5/IPRATROPIUM 0.5 INH SOL 3 ML VIAL.NEB. NEB SCH ×5 (00:11→18:22)
[2016-04-01] MEDS: METRONIDAZOLE 500 MG PREMIXED 100 ML IVPB SCH ×3 (02:00→18:27)
[2016-04-01] MEDS: methylPREDNISolone NA SUCC 40 MG/1 ML VIAL IVPB SCH ×3 (03:44→18:27)
[2016-04-01] MEDS: VANCOMYCIN 250 MG/5 ML ORAL SOLUTION PO SCH ×4 (06:40→18:27)
[2016-04-01] MEDS: POTASSIUM CHLORIDE 10 MEQ in SODIUM CHLORIDE 0.45% 1,000 ML IVPB SCH ×2 (06:42→18:27)
[2016-04-01 08:27] LABS: MCH 30.9 pg (25.7-33.7); MCHC 33.7 g/dl (32.0-35.9); MEAN CELL VOLUME 91.9 fl (80-96); MEAN PLT VOLUME 8.1 fl (7.5-11.1); PLATELET COUNT 198 K/MM3 (134-434); RDW 18.1 % (11.9-15.9)
[2016-04-01 08:35] LABS: ALBUMIN 2.4 g/dl (3.4-5.0); ALK PHOS 47 U/L (45-117); ANION GAP 8 (8-16); BILIRUBIN,TOTAL 0.5 mg/dL (0.2-1.0); CALCIUM 7.8 mg/dL (8.5-10.1); CO2 31 mmol/L (21-32); GLUCOSE,RANDOM 114 mg/dL (74-106); SGOT/AST 20 U/L (15-37); SGPT/ALT 14 U/L (12-78); TOT PROT 4.5 g/dl (6.4-8.2)
--- NOTE | 2016-04-01 09:29 | PN ---
Progress Note, Physician History of Present Illness: 80 Y/O MALE HISTORY OF LONG TIME TOBACCO USE PRESENTS WITH ABDOMINAL PAIN WITH RECTAL BLEED, AND DYSPNEA. PATIENT DIAGNOSED WITH LUNG MASS 4 MONTHS AGO AND WAS SCHEDULED IN [facility] FOR LUNG VOLUME REDUCTION AND BIOPSY BUT NEVER WENT AND HE AND HIS FAMILY HAVE REFUSED AND AGGRESSIVE INTERVENTIONS. - Current Medication List Current Medications: Active Medications Acetaminophen (Tylenol -) 650 mg PO Q6H PRN PRN Reason: FEVER OR PAIN Albuterol/Ipratropium (Duoneb -) 1 amp NEB QIDR [facility] Last Admin: 04/01/16 06:49 Dose: 1 amp Aspirin (Ecotrin -) 81 mg PO DAILY [facility] Last Admin: 03/31/16 09:51 Dose: 81 mg Atorvastatin Calcium (Lipitor -) 10 mg PO HS [facility] Last Admin: 03/31/16 23:19 Dose: 10 mg Bisacodyl (Dulcolax -) 5 mg PO DAILY PRN PRN Reason: CONSTIPATION Metronidazole (Flagyl 500mg Premixed Ivpb -) 100 mls @ 100 mls/hr IVPB Q8H-IV [facility] Last Admin: 04/01/16 02:00 Dose: 100 mls/hr Levofloxacin (Levaquin 500 Mg Premixed Ivpb -) 100 mls @ 100 mls/hr IVPB DAILY [facility] Last Admin: 03/31/16 13:15 Dose: 100 mls/hr Potassium Chloride 10 meq/ (Sodium Chloride) 1,005 mls @ 42 mls/hr IVPB Q24H [facility] Last Admin: 04/01/16 06:42 Dose: 42 mls/hr Isosorbide Mononitrate (Imdur -) 30 mg PO DAILY [facility] Last Admin: 03/31/16 09:51 Dose: 30 mg Labetalol HCl (Normodyne -) 100 mg PO DAILY [facility] Last Admin: 03/31/16 09:51 Dose: 100 mg Lisinopril (Prinivil) 5 mg PO DAILY [facility] Last Admin: 03/31/16 09:51 Dose: 5 mg Methylprednisolone Sodium Succinate (Solu-Medrol -) 20 mg IVPB Q8H-IV [facility] Last Admin: 04/01/16 03:44 Dose: 20 mg Mirtazapine (Remeron -) 7.5 mg PO HS [facility] Last Admin: 03/31/16 23:20 Dose: 7.5 mg Mometasone Furoate (Asmanex 220mcg -) 1 puff IH BID [facility] Last Admin: 03/31/16 22:00 Dose: Not Given Pantoprazole Sodium (Protonix -) 40 mg PO DAILY [facility] Last Admin: 03/31/16 09:51 Dose: 40 mg Roflumilast (Daliresp -) 500 mcg PO DAILY [facility] Last Admin: 03/31/16 09:52 Dose: 500 mcg Vancomycin HCl (Vancomycin Oral Solution) 250 mg PO Q6HPO [facility] Last Admin: 04/01/16 06:40 Dose: 250 mg - Objective Vital Signs: Vital Signs Temperature 97.4 F L 04/01/16 06:00 Pulse Rate 76 04/01/16 06:00 Respiratory Rate 20 04/01/16 06:00 Blood Pressure 132/68 04/01/16 06:00 O2 Sat by Pulse Oximetry (%) 98 03/31/16 18:00 Neck: Yes: Supple Cardiovascular: Yes: Regular Rate and Rhythm Respiratory: Yes: Diminished, On Nasal O2 Gastrointestinal: Yes: Normal Bowel Sounds, Soft. No: Tenderness Edema: No Labs: CBC, BMP 04/01/16 06:30 04/01/16 06:30 INR, PTT INR 1.41 (0.82-1.09) H 03/30/16 20:49 Problem List - Problems (1) Colitis Assessment/Plan: IV ABX MONITOR Laboratory Tests 03/30/16 03/31/16 04/01/16 20:49 06:00 06:30 WBC 15.2 H 11.8 H 10.0 Code(s): K52.9 - NONINFECTIVE GASTROENTERITIS AND COLITIS, UNSPECIFIED (2) Lung mass Assessment/Plan: REFUSES INTERVENTION Code(s): R91.8 - OTHER NONSPECIFIC ABNORMAL FINDING OF LUNG FIELD (3) COPD exacerbation Assessment/Plan: STEROIDS NEBS PULM ON BOARD Code(s): J44.1 - CHRONIC OBSTRUCTIVE PULMONARY DISEASE W (ACUTE) EXACERBATION (4) HTN (hypertension) Assessment/Plan: STABLE Code(s): I10 - ESSENTIAL (PRIMARY) HYPERTENSION
[2016-04-01] MEDS ORDERED: PT OWN MED DRAWER 7, Y5N ONE ×2 (09:40→18:25)
[2016-04-01] MEDS: PANTOPRAZOLE 40 MG TABLET (FP) PO SCH (09:48)
[2016-04-01] MEDS: ROFLUMILAST 500 MCG TABLET PO SCH (09:48)
[2016-04-01] MEDS: LABETALOL HCL 100 MG TABLET (FP) PO SCH (09:48)
[2016-04-01] MEDS: LEVOFLOXACIN 500 MG IVPB 100 ML IVPB SCH (09:48)
[2016-04-01] MEDS: LISINOPRIL 5 MG TABLET (FP) PO SCH (09:49)
[2016-04-01] MEDS: ISOSORBIDE MONONITRATE 30 MG TAB.SR.24H (FP) PO SCH (09:49)
[2016-04-01] MEDS: ASPIRIN COATED 81 MG TABLET.EC PO SCH (09:49)
[2016-04-01] MEDS: MOMETASONE FUROATE 220 MCG/IH INHALER IH SCH ×2 (09:57→21:15)
--- NOTE | 2016-04-01 10:10 | PN ---
Progress Note (short form) - Note Progress Note: PULMONARY AWAKE/ALERT APPEARS IMPROVED VSS/AFEBRILE ANICTERIC DIMINISHED DIFFUSE BREATH SOUNDS S1S2 BS+ LESS TENDER REDUCED EDEMA B/L LOWER EXT LABS/MEDS/NOTES/IMAGING/CONSULTS REVIEWED Abdominal Pain/colitis likely ischemic AAA s/p EVAR Acute on Chronic Hypoxic Respiratory Failure CAD h/o nephrectomy RUL Lung Nodule -> suspicious for malignancy - Medrol 20 mg Q8 to continue for now - inhaled bronchodilators - O2 to keep SpO2 >90% - BiPAP as needed to assist in work of breathing - pain control - DVT prophylaxis - Will need follow up of RUL lesion after he is stable (will be following at [place]). - GI opinion appreciated Fantasma SPENCER MD Problem List - Problems (1) Colitis Code(s): K52.9 - NONINFECTIVE GASTROENTERITIS AND COLITIS, UNSPECIFIED (2) Lung mass Code(s): R91.8 - OTHER NONSPECIFIC ABNORMAL FINDING OF LUNG FIELD (3) Abdominal pain Code(s): R10.9 - UNSPECIFIED ABDOMINAL PAIN Qualifiers: Abdominal location: generalized Qualified Code(s): R10.84 - Generalized abdominal pain (4) Asthma exacerbation in COPD Code(s): J44.1 - CHRONIC OBSTRUCTIVE PULMONARY DISEASE W (ACUTE) EXACERBATION J45.901 - UNSPECIFIED ASTHMA WITH (ACUTE) EXACERBATION (5) CAD S/P percutaneous coronary angioplasty Code(s): I25.10 - ATHSCL HEART DISEASE OF [place] CORONARY ARTERY W/O ANG PCTRS Z98.61 - CORONARY ANGIOPLASTY STATUS
--- NOTE | 2016-04-01 11:04 | PN ---
GI Progress Note Subjective: Patient lying in bed-appears uncomfortable. When asked if he has pain, he points to lower abdomen. Spoke with family members last night. They state that he had uncontrollable diarrhea and had frequent accidents trying to get to the bathroom. - Objective Vital Signs: Vital Signs Temperature 97.4 F L 04/01/16 06:00 Pulse Rate 76 04/01/16 06:00 Respiratory Rate 20 04/01/16 06:00 Blood Pressure 132/68 04/01/16 06:00 O2 Sat by Pulse Oximetry (%) 98 03/31/16 18:00 Constitutional: Well Nourished, Anxious, Moderate Distress HENT: Yes: Normocephalic Neck: Yes: Supple Cardiovascular: Yes: Regular Rate and Rhythm Respiratory: Yes: CTA Bilaterally Gastrointestinal Inspection: Yes: WNL ...Auscultate: Yes: Normoactive Bowel Sounds ...Palpate: Yes: Soft. No: Tenderness Labs: CBC, BMP 04/01/16 06:30 04/01/16 06:30 INR, PTT INR 1.41 (0.82-1.09) H 03/30/16 20:49 - ....Imaging Cat Scan: Report Reviewed (Extensive R sided colitis) Assessment/Plan Patient with thickening of the R colon including the cecum. He has not had a BM since admission to the hospital. Rec: While ischemia is a possibility, will treat empirically for C diff. There is no mention of the celiac axis patency on CTA done last week. There is also no mention of colitis. CTA done in Sept states patency of celiac trunk and SMA. Rec: IVF and AbRx with empiric treatment of C diff. Stool studies sent and pending. There is no gross bleeding. Lactate normal as is CK. Check CEA
[2016-04-01] MEDS: ATORVASTATIN CA 10 MG TABLET (FP) PO SCH (21:15)
[2016-04-01] MEDS: MIRTAZAPINE 15 MG TABLET (FP) PO SCH (21:15)
[2016-04-02] MEDS: VANCOMYCIN 250 MG/5 ML ORAL SOLUTION PO SCH ×4 (00:14→17:47)
[2016-04-02] MEDS: ALBUTEROL SO4 2.5/IPRATROPIUM 0.5 INH SOL 3 ML VIAL.NEB. NEB SCH ×5 (00:18→23:28)
[2016-04-02] MEDS: methylPREDNISolone NA SUCC 40 MG/1 ML VIAL IVPB SCH ×3 (01:29→17:46)
[2016-04-02] MEDS: METRONIDAZOLE 500 MG PREMIXED 100 ML IVPB SCH ×3 (01:30→17:46)
--- NOTE | 2016-04-02 10:23 | PN ---
Progress Note (short form) - Note Progress Note: PULMONARY AWAKE/ALERT APPEARS IMPROVED VSS/AFEBRILE ANICTERIC DIMINISHED DIFFUSE BREATH SOUNDS S1S2 BS+ LESS TENDER REDUCED EDEMA B/L LOWER EXT LABS/MEDS/NOTES/IMAGING/CONSULTS REVIEWED Abdominal Pain/colitis likely ischemic AAA s/p EVAR Acute on Chronic Hypoxic Respiratory Failure CAD h/o nephrectomy RUL Lung Nodule -> suspicious for malignancy - Medrol 20 mg Q8 to continue for now - inhaled bronchodilators - O2 to keep SpO2 >90% - BiPAP as needed to assist in work of breathing - pain control - DVT prophylaxis - Will need follow up of RUL lesion after he is stable (will be following at [place]). - GI opinion appreciated Fantasma SPENCER MD Problem List - Problems (1) Colitis Code(s): K52.9 - NONINFECTIVE GASTROENTERITIS AND COLITIS, UNSPECIFIED (2) Lung mass Code(s): R91.8 - OTHER NONSPECIFIC ABNORMAL FINDING OF LUNG FIELD (3) Abdominal pain Code(s): R10.9 - UNSPECIFIED ABDOMINAL PAIN Qualifiers: Abdominal location: generalized Qualified Code(s): R10.84 - Generalized abdominal pain (4) Asthma exacerbation in COPD Code(s): J44.1 - CHRONIC OBSTRUCTIVE PULMONARY DISEASE W (ACUTE) EXACERBATION J45.901 - UNSPECIFIED ASTHMA WITH (ACUTE) EXACERBATION (5) CAD S/P percutaneous coronary angioplasty Code(s): I25.10 - ATHSCL HEART DISEASE OF [place] CORONARY ARTERY W/O ANG PCTRS Z98.61 - CORONARY ANGIOPLASTY STATUS
[2016-04-02] MEDS ORDERED: PT OWN MED DRAWER 7, Y5N ONE (10:45)
[2016-04-02] MEDS: LISINOPRIL 5 MG TABLET (FP) PO SCH (10:51)
[2016-04-02] MEDS: ASPIRIN COATED 81 MG TABLET.EC PO SCH (10:51)
[2016-04-02] MEDS: ISOSORBIDE MONONITRATE 30 MG TAB.SR.24H (FP) PO SCH (10:51)
[2016-04-02] MEDS: LABETALOL HCL 100 MG TABLET (FP) PO SCH (10:51)
[2016-04-02] MEDS: PANTOPRAZOLE 40 MG TABLET (FP) PO SCH (10:51)
[2016-04-02] MEDS: MOMETASONE FUROATE 220 MCG/IH INHALER IH SCH ×2 (10:52→21:47)
[2016-04-02] MEDS: ROFLUMILAST 500 MCG TABLET PO SCH (10:52)
--- NOTE | 2016-04-02 10:52 | PN ---
Progress Note, Physician History of Present Illness: 80 Y/O MALE HISTORY OF LONG TIME TOBACCO USE PRESENTS WITH ABDOMINAL PAIN WITH RECTAL BLEED, AND DYSPNEA. PATIENT DIAGNOSED WITH LUNG MASS 4 MONTHS AGO AND WAS SCHEDULED IN [facility] FOR LUNG VOLUME REDUCTION AND BIOPSY BUT NEVER WENT AND HE AND HIS FAMILY HAVE REFUSED AND AGGRESSIVE INTERVENTIONS. - Current Medication List Current Medications: Active Medications Acetaminophen (Tylenol -) 650 mg PO Q6H PRN PRN Reason: FEVER OR PAIN Last Admin: 04/01/16 12:02 Dose: 650 mg Albuterol/Ipratropium (Duoneb -) 1 amp NEB QIDR [facility] Last Admin: 04/02/16 06:56 Dose: 1 amp Aspirin (Ecotrin -) 81 mg PO DAILY [facility] Last Admin: 04/01/16 09:49 Dose: 81 mg Atorvastatin Calcium (Lipitor -) 10 mg PO HS [facility] Last Admin: 04/01/16 21:15 Dose: 10 mg Bisacodyl (Dulcolax -) 5 mg PO DAILY PRN PRN Reason: CONSTIPATION Metronidazole (Flagyl 500mg Premixed Ivpb -) 100 mls @ 100 mls/hr IVPB Q8H-IV [facility] Last Admin: 04/02/16 01:30 Dose: 100 mls/hr Levofloxacin (Levaquin 500 Mg Premixed Ivpb -) 100 mls @ 100 mls/hr IVPB DAILY [facility] Last Admin: 04/01/16 09:48 Dose: 100 mls/hr Potassium Chloride 10 meq/ (Sodium Chloride) 1,005 mls @ 42 mls/hr IVPB Q24H [facility] Last Admin: 04/01/16 18:27 Dose: Not Given Isosorbide Mononitrate (Imdur -) 30 mg PO DAILY [facility] Last Admin: 04/01/16 09:49 Dose: 30 mg Labetalol HCl (Normodyne -) 100 mg PO DAILY [facility] Last Admin: 04/01/16 09:48 Dose: 100 mg Lisinopril (Prinivil) 5 mg PO DAILY [facility] Last Admin: 04/01/16 09:49 Dose: 5 mg Methylprednisolone Sodium Succinate (Solu-Medrol -) 20 mg IVPB Q8H-IV [facility] Last Admin: 04/02/16 01:29 Dose: 20 mg Mirtazapine (Remeron -) 7.5 mg PO [facility] Last Admin: 04/01/16 21:15 Dose: 7.5 mg Mometasone Furoate (Asmanex 220mcg -) 1 puff IH BID [facility] Last Admin: 04/01/16 21:15 Dose: 1 puff Pantoprazole Sodium (Protonix -) 40 mg PO DAILY [facility] Last Admin: 04/01/16 09:48 Dose: 40 mg Roflumilast (Daliresp -) 500 mcg PO DAILY [facility] Last Admin: 04/01/16 09:48 Dose: 500 mcg Vancomycin HCl (Vancomycin Oral Solution) 250 mg PO Q6HPO [facility] Last Admin: 04/02/16 06:35 Dose: 250 mg - Objective Vital Signs: Vital Signs Temperature 98.2 F 04/02/16 06:52 Pulse Rate 82 04/02/16 06:52 Respiratory Rate 20 04/02/16 06:52 Blood Pressure 145/80 04/02/16 06:52 O2 Sat by Pulse Oximetry (%) 96 04/01/16 23:00 Cardiovascular: Yes: Regular Rate and Rhythm Respiratory: Yes: Diminished, On Nasal O2 Gastrointestinal: Yes: Normal Bowel Sounds, Soft Labs: CBC, BMP 04/01/16 06:30 04/01/16 06:30 INR, PTT INR 1.41 (0.82-1.09) H 03/30/16 20:49 Problem List - Problems (1) Colitis Assessment/Plan: IV ABX MONITOR Laboratory Tests 03/30/16 03/31/16 04/01/16 20:49 06:00 06:30 WBC 15.2 H 11.8 H 10.0 Code(s): K52.9 - NONINFECTIVE GASTROENTERITIS AND COLITIS, UNSPECIFIED (2) Lung mass Assessment/Plan: REFUSES INTERVENTION Code(s): R91.8 - OTHER NONSPECIFIC ABNORMAL FINDING OF LUNG FIELD (3) COPD exacerbation Assessment/Plan: STEROIDS NEBS PULM ON BOARD Code(s): J44.1 - CHRONIC OBSTRUCTIVE PULMONARY DISEASE W (ACUTE) EXACERBATION (4) HTN (hypertension) Assessment/Plan: STABLE Code(s): I10 - ESSENTIAL (PRIMARY) HYPERTENSION
[2016-04-02] MEDS: LEVOFLOXACIN 500 MG IVPB 100 ML IVPB SCH (10:54)
--- NOTE | 2016-04-02 12:00 | PN ---
GI Progress Note Subjective: Lying in bed. No BM since admission. Given dulcolax last night and just had greenish/brown pasty stool. - Objective Vital Signs: Vital Signs Temperature 98.2 F 04/02/16 06:52 Pulse Rate 82 04/02/16 06:52 Respiratory Rate 20 04/02/16 06:52 Blood Pressure 145/80 04/02/16 06:52 O2 Sat by Pulse Oximetry (%) 96 04/01/16 23:00 Constitutional: Well Nourished HENT: Yes: Normocephalic Neck: Yes: Supple Cardiovascular: Yes: Regular Rate and Rhythm Respiratory: Yes: CTA Bilaterally Gastrointestinal Inspection: Yes: WNL ...Auscultate: Yes: Normoactive Bowel Sounds ...Palpate: Yes: Soft. No: Tenderness Labs: CBC, BMP 04/01/16 06:30 04/01/16 06:30 INR, PTT INR 1.41 (0.82-1.09) H 03/30/16 20:49 Hepatic Panel Total Bilirubin 0.5 mg/dL (0.2-1.0) 04/01/16 06:30 AST 20 U/L (15-37) 04/01/16 06:30 ALT 14 U/L (12-78) D 04/01/16 06:30 Alkaline Phosphatase 47 U/L (45-117) 04/01/16 06:30 Albumin 2.4 g/dl (3.4-5.0) L 04/01/16 06:30 - ....Imaging Cat Scan: Report Reviewed Assessment/Plan Patient with thickening of the R colon including the cecum on CT done this admission. He had not had a BM since admission to the hospital until this AM, after receiving dulcolax last night. Rec: While ischemia is a possibility, will continue to treat empirically for C diff. There is no mention of the celiac axis patency on CTA done last week. There is also no mention of colitis. on that film. CTA done in Sept states patency of celiac trunk and SMA. Rec: IVF and AbRx with empiric treatment of C diff. Stool studies sent this AM. There is no gross bleeding. Lactate normal as is CK. Check CEA.
--- NOTE | 2016-04-02 12:30 | PN ---
Progress Note (short form) - Note Progress Note: RENAL Pt is awake and alert denied complaints Last Vital Signs Temp Pulse Resp BP Pulse Ox 98.2 F 82 20 145/80 96 04/02/16 06:52 04/02/16 06:52 04/02/16 06:52 04/02/16 06:52 04/01/16 23:00 lungs clear cvs s1s2 rr abd soft ext no edema neuro a+ox3 CBC, BMP 04/01/16 06:30 04/01/16 06:30 Current Medications Generic Name Dose Route Start Last Admin Trade Name Freq PRN Reason Stop Dose Admin Acetaminophen 650 mg 03/31/16 02:22 04/01/16 12:02 Tylenol - PO 650 mg Q6H PRN Administration FEVER OR PAIN Albuterol/Ipratropium 1 amp 03/31/16 06:00 04/02/16 11:02 Duoneb - NEB 1 amp QIDR DIXON Administration Aspirin 81 mg 03/31/16 10:00 04/02/16 10:51 Ecotrin - PO 81 mg DAILY D[facility]ON Administration Atorvastatin Calcium 10 mg 03/31/16 22:00 04/01/16 21:15 Lipitor - PO 10 mg HS D[facility]ON Administration Bisacodyl 5 mg 03/31/16 02:22 04/02/16 10:51 Dulcolax - PO 5 mg DAILY PRN Administration CONSTIPATION Metronidazole 100 mls @ 100 mls/hr 03/31/16 13:15 04/02/16 10:53 Flagyl 500mg Premixed Ivpb - IVPB 100 mls/hr Q8H-IV [facility]ON Administration Levofloxacin 100 mls @ 100 mls/hr 03/31/16 13:15 04/02/16 10:54 Levaquin 500 Mg Premixed Ivpb - IVPB 100 mls/hr DAILY D[facility]ON Administration Potassium Chloride 10 meq/ 1,005 mls @ 42 mls/hr 03/31/16 18:00 04/01/16 18:27 Sodium Chloride IVPB Not Given Q24H DIXON Isosorbide Mononitrate 30 mg 03/31/16 10:00 04/02/16 10:51 Imdur - PO 30 mg DAILY D[facility]ON Administration Labetalol HCl 100 mg 03/31/16 10:00 04/02/16 10:51 Normodyne - PO 100 mg DAILY D[facility]ON Administration Lisinopril 5 mg 03/31/16 10:00 04/02/16 10:51 Prinivil PO 5 mg DAILY [facility] Administration Methylprednisolone Sodium Succinate 20 mg 03/31/16 12:15 04/02/16 10:53 Solu-Medrol - IVPB 20 mg Q8H-IV [facility]ON Administration Mirtazapine 7.5 mg 03/31/16 22:00 04/01/16 21:15 Remeron - PO 7.5 mg HS DIXON Administration Mometasone Furoate 1 puff 03/31/16 10:00 04/02/16 10:52 Asmanex 220mcg - IH 1 puff BID DIXON Administration Pantoprazole Sodium 40 mg 03/31/16 10:00 04/02/16 10:51 Protonix - PO 40 mg DAILY D[facility]ON Administration Roflumilast 500 mcg 03/31/16 10:00 04/02/16 10:52 Daliresp - PO 500 mcg DAILY DIXON Administration Vancomycin HCl 250 mg 04/01/16 00:00 04/02/16 12:31 Vancomycin Oral Solution PO 250 mg Q6HPO DIXON Administration IMPRESSION ckd anemia colitis seems better copd s/p nephrectomy PLAN continue current plan would keep hydrated MV
[2016-04-02] MEDS: POTASSIUM CHLORIDE 10 MEQ in SODIUM CHLORIDE 0.45% 1,000 ML IVPB SCH (17:46)
[2016-04-02] MEDS: ATORVASTATIN CA 10 MG TABLET (FP) PO SCH (21:47)
[2016-04-02] MEDS: MIRTAZAPINE 15 MG TABLET (FP) PO SCH (21:47)
[2016-04-03] MEDS: VANCOMYCIN 250 MG/5 ML ORAL SOLUTION PO SCH ×2 (00:10→06:19)
[2016-04-03] MEDS: methylPREDNISolone NA SUCC 40 MG/1 ML VIAL IVPB SCH ×3 (02:44→17:14)
[2016-04-03] MEDS: METRONIDAZOLE 500 MG PREMIXED 100 ML IVPB SCH ×3 (02:45→17:14)
[2016-04-03] MEDS: ALBUTEROL SO4 2.5/IPRATROPIUM 0.5 INH SOL 3 ML VIAL.NEB. NEB SCH ×4 (06:50→23:38)
[2016-04-03] MEDS ORDERED: PT OWN MED DRAWER 7, Y5N ONE ×2 (09:22→21:21)
[2016-04-03] MEDS: ASPIRIN COATED 81 MG TABLET.EC PO SCH (09:29)
[2016-04-03] MEDS: ROFLUMILAST 500 MCG TABLET PO SCH (09:29)
[2016-04-03] MEDS: LABETALOL HCL 100 MG TABLET (FP) PO SCH (09:29)
[2016-04-03] MEDS: ISOSORBIDE MONONITRATE 30 MG TAB.SR.24H (FP) PO SCH (09:29)
[2016-04-03] MEDS: MOMETASONE FUROATE 220 MCG/IH INHALER IH SCH ×2 (09:30→21:23)
[2016-04-03] MEDS: PANTOPRAZOLE 40 MG TABLET (FP) PO SCH (09:35)
[2016-04-03] MEDS: LISINOPRIL 5 MG TABLET (FP) PO SCH (09:35)
[2016-04-03] MEDS: LEVOFLOXACIN 500 MG IVPB 100 ML IVPB SCH (10:29)
--- NOTE | 2016-04-03 10:46 | PN ---
Progress Note, Physician Chief Complaint: AWAKE ALERT WEAK ON 02 NC POOR APPETITE NO BM - Current Medication List Current Medications: Active Medications Acetaminophen (Tylenol -) 650 mg PO Q6H PRN PRN Reason: FEVER OR PAIN Last Admin: 04/01/16 12:02 Dose: 650 mg Albuterol/Ipratropium (Duoneb -) 1 amp NEB QIDR [facility] Last Admin: 04/03/16 06:50 Dose: 1 amp Aspirin (Ecotrin -) 81 mg PO DAILY [facility] Last Admin: 04/03/16 09:29 Dose: 81 mg Atorvastatin Calcium (Lipitor -) 10 mg PO HS [facility] Last Admin: 04/02/16 21:47 Dose: 10 mg Bisacodyl (Dulcolax -) 5 mg PO DAILY PRN PRN Reason: CONSTIPATION Last Admin: 04/02/16 10:51 Dose: 5 mg Metronidazole (Flagyl 500mg Premixed Ivpb -) 100 mls @ 100 mls/hr IVPB Q8H-IV [facility] Last Admin: 04/03/16 09:27 Dose: 100 mls/hr Levofloxacin (Levaquin 500 Mg Premixed Ivpb -) 100 mls @ 100 mls/hr IVPB DAILY [facility] Last Admin: 04/03/16 10:29 Dose: 100 mls/hr Potassium Chloride 10 meq/ (Sodium Chloride) 1,005 mls @ 42 mls/hr IVPB Q24H [facility] Last Admin: 04/02/16 17:46 Dose: 42 mls/hr Isosorbide Mononitrate (Imdur -) 30 mg PO DAILY [facility] Last Admin: 04/03/16 09:29 Dose: 30 mg Labetalol HCl (Normodyne -) 100 mg PO DAILY [facility] Last Admin: 04/03/16 09:29 Dose: 100 mg Lisinopril (Prinivil) 5 mg PO DAILY [facility] Last Admin: 04/03/16 09:35 Dose: 5 mg Methylprednisolone Sodium Succinate (Solu-Medrol -) 20 mg IVPB Q8H-IV [facility] Last Admin: 04/03/16 09:26 Dose: 20 mg Mirtazapine (Remeron -) 7.5 mg PO HS [facility] Last Admin: 04/02/16 21:47 Dose: 7.5 mg Mometasone Furoate (Asmanex 220mcg -) 1 puff IH BID [facility] Last Admin: 04/03/16 09:30 Dose: 1 puff Pantoprazole Sodium (Protonix -) 40 mg PO DAILY [facility] Last Admin: 04/03/16 09:35 Dose: 40 mg Roflumilast (Daliresp -) 500 mcg PO DAILY [facility] Last Admin: 04/03/16 09:29 Dose: 500 mcg - Objective Vital Signs: Vital Signs Temperature 97.2 F L 04/03/16 06:00 Pulse Rate 80 04/03/16 06:00 Respiratory Rate 20 04/03/16 06:00 Blood Pressure 146/79 04/03/16 06:00 O2 Sat by Pulse Oximetry (%) 98 04/02/16 20:59 Constitutional: Yes: Mild Distress Eyes: Yes: WNL HENT: Yes: WNL Neck: Yes: WNL Cardiovascular: Yes: WNL Respiratory: Yes: Diminished, On Nasal O2 Gastrointestinal: Yes: Tenderness Genitourinary: Yes: Incontinence Musculoskeletal: Yes: Muscle Weakness Extremities: Yes: WNL Edema: Yes Peripheral Pulses WNL: Yes Integumentary: Yes: WNL Wound/Incision: Yes: Clean/Dry Neurological: Yes: Pre-Existing Deficit, Unsteady Gait ...Motor Strength: LLE, RLE Psychiatric: Yes: WNL Labs: CBC, BMP 04/01/16 06:30 04/01/16 06:30 INR, PTT INR 1.41 (0.82-1.09) H 03/30/16 20:49 Problem List - Problems (1) Colitis Code(s): K52.9 - NONINFECTIVE GASTROENTERITIS AND COLITIS, UNSPECIFIED (2) Lung mass Code(s): R91.8 - OTHER NONSPECIFIC ABNORMAL FINDING OF LUNG FIELD (3) AAA (abdominal aortic aneurysm) without rupture Code(s): I71.4 - ABDOMINAL AORTIC ANEURYSM, WITHOUT RUPTURE (4) Abdominal pain Code(s): R10.9 - UNSPECIFIED ABDOMINAL PAIN Qualifiers: Abdominal location: generalized Qualified Code(s): R10.84 - Generalized abdominal pain (5) Acute on chronic respiratory failure with hypoxia and hypercapnia Code(s): J96.21 - ACUTE AND CHRONIC RESPIRATORY FAILURE WITH HYPOXIA J96.22 - ACUTE AND CHRONIC RESPIRATORY FAILURE WITH HYPERCAPNIA (6) Acute respiratory failure with hypercapnia Code(s): J96.02 - ACUTE RESPIRATORY FAILURE WITH HYPERCAPNIA (7) Asthma exacerbation in COPD Code(s): J44.1 - CHRONIC OBSTRUCTIVE PULMONARY DISEASE W (ACUTE) EXACERBATION J45.901 - UNSPECIFIED ASTHMA WITH (ACUTE) EXACERBATION (8) CAD S/P percutaneous coronary angioplasty Code(s): I25.10 - ATHSCL HEART DISEASE OF [place] CORONARY ARTERY W/O ANG PCTRS Z98.61 - CORONARY ANGIOPLASTY STATUS (9) COPD exacerbation Code(s): J44.1 - CHRONIC OBSTRUCTIVE PULMONARY DISEASE W (ACUTE) EXACERBATION (10) Chronic kidney disease Code(s): N18.9 - CHRONIC KIDNEY DISEASE, UNSPECIFIED (11) Emphysema of lung Code(s): J43.9 - EMPHYSEMA, UNSPECIFIED (12) Advanced directives, counseling/discussion Code(s): Z71.89 - OTHER SPECIFIED COUNSELING Assessment/Plan I SPENT 30 MINUTES DISCUSSING ADVANCED DIRECTIVES PATIENT WOULD LIKE TO BE DNR/DNI AND TO BE ADMITTED TO [facility] FOR COMFORT CARE AND NO READMISSIONS TO HOSPITAL. I SPOKE WITH HIS DAUGHTER KONG BARDALES ON THE PHONE AND SHE AGREED WITH THE PLAN HOWEVER, SHE NEEDS TO DISCUSS WITH HER OTHER SIBLINGS FIRST PRIOR TO SIGNING ANY PAPERWORK. CONTINUE CURRENT MANAGEMENT, IV ABX STEROIDS NEBS 02 SUPPORT
--- NOTE | 2016-04-03 10:59 | PN ---
Progress Note (short form) - Note Progress Note: PULMONARY VSS/AFEBRILE ANICTERIC DIMINISHED DIFFUSE BREATH SOUNDS S1S2 BS+ LESS TENDER REDUCED EDEMA B/L LOWER EXT LABS/MEDS/NOTES/IMAGING/CONSULTS REVIEWED Abdominal Pain/colitis likely ischemic AAA s/p EVAR Acute on Chronic Hypoxic Respiratory Failure CAD h/o nephrectomy RUL Lung Nodule -> suspicious for malignancy - Medrol 20 mg Q8 to continue for now - inhaled bronchodilators - O2 to keep SpO2 >90% - BiPAP as needed to assist in work of breathing - pain control - DVT prophylaxis - Will need follow up of RUL lesion after he is stable (will be following at [place]). - GI opinion appreciated - Considering SNF/comfort care Fantasma SPENCER MD Problem List - Problems (1) Colitis Code(s): K52.9 - NONINFECTIVE GASTROENTERITIS AND COLITIS, UNSPECIFIED (2) Lung mass Code(s): R91.8 - OTHER NONSPECIFIC ABNORMAL FINDING OF LUNG FIELD (3) Abdominal pain Code(s): R10.9 - UNSPECIFIED ABDOMINAL PAIN Qualifiers: Abdominal location: generalized Qualified Code(s): R10.84 - Generalized abdominal pain (4) Asthma exacerbation in COPD Code(s): J44.1 - CHRONIC OBSTRUCTIVE PULMONARY DISEASE W (ACUTE) EXACERBATION J45.901 - UNSPECIFIED ASTHMA WITH (ACUTE) EXACERBATION (5) CAD S/P percutaneous coronary angioplasty Code(s): I25.10 - ATHSCL HEART DISEASE OF [place] CORONARY ARTERY W/O ANG PCTRS Z98.61 - CORONARY ANGIOPLASTY STATUS
--- NOTE | 2016-04-03 11:46 | PN ---
Progress Note, Physician History of Present Illness: Pt seen and examined at bedside. He is awake and alert. He feels that the abdominal pain is improved. He is out of bed to chair today. - Current Medication List Current Medications: Active Medications Acetaminophen (Tylenol -) 650 mg PO Q6H PRN PRN Reason: FEVER OR PAIN Last Admin: 04/01/16 12:02 Dose: 650 mg Albuterol/Ipratropium (Duoneb -) 1 amp NEB QIDR [facility] Last Admin: 04/03/16 06:50 Dose: 1 amp Aspirin (Ecotrin -) 81 mg PO DAILY [facility] Last Admin: 04/03/16 09:29 Dose: 81 mg Atorvastatin Calcium (Lipitor -) [address] [facility] Last Admin: 04/02/16 21:47 Dose: 10 mg Bisacodyl (Dulcolax -) 5 mg PO DAILY PRN PRN Reason: CONSTIPATION Last Admin: 04/02/16 10:51 Dose: 5 mg Metronidazole (Flagyl 500mg Premixed Ivpb -) 100 mls @ 100 mls/hr IVPB Q8H-IV [facility] Last Admin: 04/03/16 09:27 Dose: 100 mls/hr Levofloxacin (Levaquin 500 Mg Premixed Ivpb -) 100 mls @ 100 mls/hr IVPB DAILY [facility] Last Admin: 04/03/16 10:29 Dose: 100 mls/hr Potassium Chloride 10 meq/ (Sodium Chloride) 1,005 mls @ 42 mls/hr IVPB Q24H [facility] Last Admin: 04/02/16 17:46 Dose: 42 mls/hr Isosorbide Mononitrate (Imdur -) 30 mg PO DAILY [facility] Last Admin: 04/03/16 09:29 Dose: 30 mg Labetalol HCl (Normodyne -) 100 mg PO DAILY [facility] Last Admin: 04/03/16 09:29 Dose: 100 mg Lisinopril (Prinivil) 5 mg PO DAILY [facility] Last Admin: 04/03/16 09:35 Dose: 5 mg Methylprednisolone Sodium Succinate (Solu-Medrol -) 20 mg IVPB Q8H-IV [facility] Last Admin: 04/03/16 09:26 Dose: 20 mg Mirtazapine (Remeron -) 7.[address] [facility] Last Admin: 04/02/16 21:47 Dose: 7.5 mg Mometasone Furoate (Asmanex 220mcg -) 1 puff IH BID [facility] Last Admin: 04/03/16 09:30 Dose: 1 puff Pantoprazole Sodium (Protonix -) 40 mg PO DAILY [facility] Last Admin: 04/03/16 09:35 Dose: 40 mg Roflumilast (Daliresp -) 500 mcg PO DAILY [facility] Last Admin: 04/03/16 09:29 Dose: 500 mcg - Objective Vital Signs: Vital Signs Temperature 97.2 F L 04/03/16 06:00 Pulse Rate 80 04/03/16 06:00 Respiratory Rate 20 04/03/16 06:00 Blood Pressure 146/79 04/03/16 06:00 O2 Sat by Pulse Oximetry (%) 98 04/02/16 20:59 Constitutional: Yes: Calm Eyes: Yes: Conjunctiva Clear HENT: Yes: Atraumatic Cardiovascular: Yes: S1, S2 Respiratory: Yes: On Nasal O2, Wheezes Gastrointestinal: Yes: Soft Genitourinary: Yes: WNL Musculoskeletal: Yes: WNL Edema: No Integumentary: Yes: WNL Neurological: Yes: Oriented Psychiatric: Yes: Oriented Labs: CBC, BMP 04/01/16 06:30 04/01/16 06:30 INR, PTT INR 1.41 (0.82-1.09) H 03/30/16 20:49 Problem List - Problems (1) Colitis Code(s): K52.9 - NONINFECTIVE GASTROENTERITIS AND COLITIS, UNSPECIFIED (2) Lung mass Code(s): R91.8 - OTHER NONSPECIFIC ABNORMAL FINDING OF LUNG FIELD (3) Chronic kidney disease Code(s): N18.9 - CHRONIC KIDNEY DISEASE, UNSPECIFIED (4) Chronic respiratory failure with hypoxia Code(s): J96.11 - CHRONIC RESPIRATORY FAILURE WITH HYPOXIA (5) Diabetes Code(s): E11.9 - TYPE 2 DIABETES MELLITUS WITHOUT COMPLICATIONS (6) Emphysema of lung Code(s): J43.9 - EMPHYSEMA, UNSPECIFIED (7) Former smoker Code(s): Z87.891 - PERSONAL HISTORY OF NICOTINE DEPENDENCE (8) H/O hernia repair Code(s): Z98.89 - OTHER SPECIFIED POSTPROCEDURAL STATES * DO NOT USE * (9) HTN (hypertension) Code(s): I10 - ESSENTIAL (PRIMARY) HYPERTENSION Assessment/Plan Current Medications Generic Name Dose Route Start Last Admin Trade Name Freq PRN Reason Stop Dose Admin Acetaminophen 650 mg 03/31/16 02:22 04/01/16 12:02 Tylenol - PO 650 mg Q6H PRN Administration FEVER OR PAIN Albuterol/Ipratropium 1 amp 03/31/16 06:00 04/03/16 06:50 Duoneb - NEB 1 amp QIDR [facility] Administration Aspirin 81 mg 03/31/16 10:00 04/03/16 09:29 Ecotrin - PO 81 mg DAILY [facility] Administration Atorvastatin Calcium 10 mg 03/31/16 22:00 04/02/16 21:47 Lipitor - PO 10 mg HS [facility] Administration Bisacodyl 5 mg 03/31/16 02:22 04/02/16 10:51 Dulcolax - PO 5 mg DAILY PRN Administration CONSTIPATION Metronidazole 100 mls @ 100 mls/hr 03/31/16 13:15 04/03/16 09:27 Flagyl 500mg Premixed Ivpb - IVPB 100 mls/hr Q8H-IV [facility] Administration Levofloxacin 100 mls @ 100 mls/hr 03/31/16 13:15 04/03/16 10:29 Levaquin 500 Mg Premixed Ivpb - IVPB 100 mls/hr DAILY [facility] Administration Potassium Chloride 10 meq/ 1,005 mls @ 42 mls/hr 03/31/16 18:00 04/02/16 17:46 Sodium Chloride IVPB 42 mls/hr Q24H [facility] Administration Isosorbide Mononitrate 30 mg 03/31/16 10:00 04/03/16 09:29 Imdur - PO 30 mg DAILY [facility] Administration Labetalol HCl 100 mg 03/31/16 10:00 04/03/16 09:29 Normodyne - PO 100 mg DAILY [facility] Administration Lisinopril 5 mg 03/31/16 10:00 04/03/16 09:35 Prinivil PO 5 mg DAILY [facility] Administration Methylprednisolone Sodium Succinate 20 mg 03/31/16 12:15 04/03/16 09:26 Solu-Medrol - IVPB 20 mg Q8H-IV [facility] Administration Mirtazapine 7.5 mg 03/31/16 22:00 04/02/16 21:47 Remeron - PO 7.5 mg HS [facility] Administration Mometasone Furoate 1 puff 03/31/16 10:00 04/03/16 09:30 Asmanex 220mcg - IH 1 puff BID [facility] Administration Pantoprazole Sodium 40 mg 03/31/16 10:00 04/03/16 09:35 Protonix - PO 40 mg DAILY [facility] Administration Roflumilast 500 mcg 03/31/16 10:00 04/03/16 09:29 Daliresp - PO 500 mcg DAILY [facility] Administration Impression 1. CKD s/p left nephrectomy 2. Colitis 3. copd 4. AAA 5. nephrolithiasis 6. lung mass 7. proteinuria Plan - renal function is stable - cont hydration - monitor labs - cont abx - cont resp treatments - taper steroids as tolerated - proteinuria workup as outpt - will follow Dr Jimenez
[2016-04-03] MEDS: POTASSIUM CHLORIDE 10 MEQ in SODIUM CHLORIDE 0.45% 1,000 ML IVPB SCH (17:14)
[2016-04-03] MEDS: MIRTAZAPINE 15 MG TABLET (FP) PO SCH (21:22)
[2016-04-03] MEDS: ATORVASTATIN CA 10 MG TABLET (FP) PO SCH (21:23)
[2016-04-04] MEDS: methylPREDNISolone NA SUCC 40 MG/1 ML VIAL IVPB SCH (01:14)
[2016-04-04] MEDS: METRONIDAZOLE 500 MG PREMIXED 100 ML IVPB SCH ×2 (01:14→09:53)
[2016-04-04] MEDS: ALBUTEROL SO4 2.5/IPRATROPIUM 0.5 INH SOL 3 ML VIAL.NEB. NEB SCH ×4 (07:01→23:25)
--- NOTE | 2016-04-04 09:31 | PN ---
Progress Note (short form) - Note Progress Note: Patient Name: MOSES SANTIAGO Date of : 1935 Patient Status: Inpatient Attending Provider: Kassandra Sanders Resting in NAD. No CP or SOB. Abdominal pain seems to be improving. No acute events overnight. Intake & Output 04/01/16 04/02/16 04/03/16 04/04/16 23:59 23:59 23:59 23:59 Intake Total 2034 1904 2192 352 Output Total 767 955 3083 250 Balance 1459 1104 992 102 Last Vital Signs Temp Pulse Resp BP Pulse Ox 97.9 F 94 H 20 129/65 94 L 04/04/16 06:58 04/04/16 06:58 04/04/16 06:58 04/04/16 06:58 04/03/16 21:00 Active Medications Acetaminophen (Tylenol -) 650 mg PO Q6H PRN PRN Reason: FEVER OR PAIN Last Admin: 04/01/16 12:02 Dose: 650 mg Albuterol/Ipratropium (Duoneb -) 1 amp NEB QIDR [facility] Last Admin: 04/04/16 07:01 Dose: 1 amp Aspirin (Ecotrin -) 81 mg PO DAILY [facility] Last Admin: 04/03/16 09:29 Dose: 81 mg Atorvastatin Calcium (Lipitor -) 10 mg PO HS [facility] Last Admin: 04/03/16 21:23 Dose: 10 mg Bisacodyl (Dulcolax -) 5 mg PO DAILY PRN PRN Reason: CONSTIPATION Last Admin: 04/02/16 10:51 Dose: 5 mg Metronidazole (Flagyl 500mg Premixed Ivpb -) 100 mls @ 100 mls/hr IVPB Q8H-IV [facility] Last Admin: 04/04/16 01:14 Dose: 100 mls/hr Levofloxacin (Levaquin 500 Mg Premixed Ivpb -) 100 mls @ 100 mls/hr IVPB DAILY [facility] Last Admin: 04/03/16 10:29 Dose: 100 mls/hr Potassium Chloride 10 meq/ (Sodium Chloride) 1,005 mls @ 42 mls/hr IVPB Q24H [facility] Last Admin: 04/03/16 17:14 Dose: 42 mls/hr Isosorbide Mononitrate (Imdur -) 30 mg PO DAILY [facility] Last Admin: 04/03/16 09:29 Dose: 30 mg Labetalol HCl (Normodyne -) 100 mg PO DAILY [facility] Last Admin: 04/03/16 09:29 Dose: 100 mg Lisinopril (Prinivil) 5 mg PO DAILY [facility] Last Admin: 04/03/16 09:35 Dose: 5 mg Methylprednisolone Sodium Succinate (Solu-Medrol -) 20 mg IVPB Q8H-IV [facility] Last Admin: 04/04/16 01:14 Dose: 20 mg Mirtazapine (Remeron -) 7.5 mg PO HS [facility] Last Admin: 04/03/16 21:22 Dose: 7.5 mg Mometasone Furoate (Asmanex 220mcg -) 1 puff IH BID [facility] Last Admin: 04/03/16 21:23 Dose: 1 puff Pantoprazole Sodium (Protonix -) 40 mg PO DAILY [facility] Last Admin: 04/03/16 09:35 Dose: 40 mg Roflumilast (Daliresp -) 500 mcg PO DAILY [facility] Last Admin: 04/03/16 09:29 Dose: 500 mcg Constitutional: Yes: NAD Eyes: Yes: Conjunctiva Clear HENT: Yes: Atraumatic Cardiovascular: Yes: S1, S2 Respiratory: Yes: On Nasal O2, No wheeze Gastrointestinal: Yes: Soft Genitourinary: Yes: WNL Musculoskeletal: Yes: WNL Edema: No Integumentary: Yes: WNL Neurological: Yes: Oriented Psychiatric: Yes: Oriented Labs: Laboratory Results - last 24 hr 04/03/16 06:45 ESR 36 H Problem List - Problems (1) Colitis Code(s): K52.9 - NONINFECTIVE GASTROENTERITIS AND COLITIS, UNSPECIFIED (2) Lung mass Code(s): R91.8 - OTHER NONSPECIFIC ABNORMAL FINDING OF LUNG FIELD (3) Abdominal pain Code(s): R10.9 - UNSPECIFIED ABDOMINAL PAIN Qualifiers: Abdominal location: generalized Qualified Code(s): R10.84 - Generalized abdominal pain (4) Asthma exacerbation in COPD Code(s): J44.1 - CHRONIC OBSTRUCTIVE PULMONARY DISEASE W (ACUTE) EXACERBATION J45.901 - UNSPECIFIED ASTHMA WITH (ACUTE) EXACERBATION (5) CAD S/P percutaneous coronary angioplasty Code(s): I25.10 - ATHSCL HEART DISEASE OF [place] CORONARY ARTERY W/O ANG PCTRS Z98.61 - CORONARY ANGIOPLASTY STATUS Abdominal Pain/colitis AAA s/p EVAR Acute on Chronic Hypoxic Respiratory Failure CAD h/o nephrectomy RUL Lung Nodule -> suspicious for malignancy - Change to Prednisone - inhaled bronchodilators - O2 to keep SpO2 >90% - pain control - DVT prophylaxis - Will need follow up of RUL lesion after he is stable (will be following at [place]). - No Pulmonary contraindication for D/C planning -> (?) SNF Dr Javed
[2016-04-04] MEDS ORDERED: PT OWN MED DRAWER 7, Y5N ONE ×2 (09:43→21:19)
[2016-04-04] MEDS: LEVOFLOXACIN 500 MG IVPB 100 ML IVPB SCH (09:53)
[2016-04-04] MEDS: LISINOPRIL 5 MG TABLET (FP) PO SCH (09:54)
[2016-04-04] MEDS: ASPIRIN COATED 81 MG TABLET.EC PO SCH (09:54)
[2016-04-04] MEDS: ROFLUMILAST 500 MCG TABLET PO SCH (09:54)
[2016-04-04] MEDS: LABETALOL HCL 100 MG TABLET (FP) PO SCH (09:54)
[2016-04-04] MEDS: ISOSORBIDE MONONITRATE 30 MG TAB.SR.24H (FP) PO SCH (09:54)
[2016-04-04] MEDS: PANTOPRAZOLE 40 MG TABLET (FP) PO SCH (09:54)
[2016-04-04] MEDS: MOMETASONE FUROATE 220 MCG/IH INHALER IH SCH ×2 (09:54→21:30)
[2016-04-04] MEDS: predniSONE 20 MG TABLET (UD) PO SCH ×2 (10:44→21:30)
--- NOTE | 2016-04-04 12:03 | PN ---
Progress Note, Physician History of Present Illness: Pt seen and examined at bedside. He is awake and alert. He denies dysuria. - Current Medication List Current Medications: Active Medications Acetaminophen (Tylenol -) 650 mg PO Q6H PRN PRN Reason: FEVER OR PAIN Last Admin: 04/01/16 12:02 Dose: 650 mg Albuterol/Ipratropium (Duoneb -) 1 amp NEB QIDR [facility] Last Admin: 04/04/16 07:01 Dose: 1 amp Aspirin (Ecotrin -) 81 mg PO DAILY [facility] Last Admin: 04/04/16 09:54 Dose: 81 mg Atorvastatin Calcium (Lipitor -) 10 mg PO HS [facility] Last Admin: 04/03/16 21:23 Dose: 10 mg Bisacodyl (Dulcolax -) 5 mg PO DAILY PRN PRN Reason: CONSTIPATION Last Admin: 04/02/16 10:51 Dose: 5 mg Metronidazole (Flagyl 500mg Premixed Ivpb -) 100 mls @ 100 mls/hr IVPB Q8H-IV [facility] Last Admin: 04/04/16 09:53 Dose: 100 mls/hr Levofloxacin (Levaquin 500 Mg Premixed Ivpb -) 100 mls @ 100 mls/hr IVPB DAILY [facility] Last Admin: 04/04/16 09:53 Dose: 100 mls/hr Potassium Chloride 10 meq/ (Sodium Chloride) 1,005 mls @ 42 mls/hr IVPB Q24H [facility] Last Admin: 04/03/16 17:14 Dose: 42 mls/hr Isosorbide Mononitrate (Imdur -) 30 mg PO DAILY [facility] Last Admin: 04/04/16 09:54 Dose: 30 mg Labetalol HCl (Normodyne -) 100 mg PO DAILY [facility] Last Admin: 04/04/16 09:54 Dose: 100 mg Lisinopril (Prinivil) 5 mg PO DAILY [facility] Last Admin: 04/04/16 09:54 Dose: 5 mg Mirtazapine (Remeron -) 7.5 mg PO HS [facility] Last Admin: 04/03/16 21:22 Dose: 7.5 mg Mometasone Furoate (Asmanex 220mcg -) 1 puff IH BID [facility] Last Admin: 04/04/16 09:54 Dose: 1 puff Pantoprazole Sodium (Protonix -) 40 mg PO DAILY [facility] Last Admin: 04/04/16 09:54 Dose: 40 mg Prednisone (Deltasone -) 20 mg PO BID [facility] Last Admin: 04/04/16 10:44 Dose: 20 mg Roflumilast (Daliresp -) 500 mcg PO DAILY [facility] Last Admin: 04/04/16 09:54 Dose: 500 mcg - Objective Vital Signs: Vital Signs Temperature 98.2 F 04/04/16 09:00 Pulse Rate 89 04/04/16 09:00 Respiratory Rate 18 04/04/16 09:00 Blood Pressure 146/77 04/04/16 09:00 O2 Sat by Pulse Oximetry (%) 99 04/04/16 09:00 Constitutional: Yes: Calm Eyes: Yes: Conjunctiva Clear HENT: Yes: Atraumatic Neck: Yes: Supple Cardiovascular: Yes: S1, S2 Respiratory: Yes: On Nasal O2, Wheezes Gastrointestinal: Yes: Soft Genitourinary: Yes: WNL Musculoskeletal: Yes: Muscle Weakness Neurological: Yes: Oriented Psychiatric: Yes: Oriented Labs: CBC, BMP 04/01/16 06:30 04/01/16 06:30 INR, PTT INR 1.41 (0.82-1.09) H 03/30/16 20:49 Problem List - Problems (1) Colitis Code(s): K52.9 - NONINFECTIVE GASTROENTERITIS AND COLITIS, UNSPECIFIED (2) Lung mass Code(s): R91.8 - OTHER NONSPECIFIC ABNORMAL FINDING OF LUNG FIELD (3) Chronic kidney disease Code(s): N18.9 - CHRONIC KIDNEY DISEASE, UNSPECIFIED (4) Chronic respiratory failure with hypoxia Code(s): J96.11 - CHRONIC RESPIRATORY FAILURE WITH HYPOXIA (5) Diabetes Code(s): E11.9 - TYPE 2 DIABETES MELLITUS WITHOUT COMPLICATIONS (6) Emphysema of lung Code(s): J43.9 - EMPHYSEMA, UNSPECIFIED (7) Former smoker Code(s): Z87.891 - PERSONAL HISTORY OF NICOTINE DEPENDENCE (8) H/O hernia repair Code(s): Z98.89 - OTHER SPECIFIED POSTPROCEDURAL STATES * DO NOT USE * (9) HTN (hypertension) Code(s): I10 - ESSENTIAL (PRIMARY) HYPERTENSION Assessment/Plan Current Medications Generic Name Dose Route Start Last Admin Trade Name Freq PRN Reason Stop Dose Admin Acetaminophen 650 mg 03/31/16 02:22 04/01/16 12:02 Tylenol - PO 650 mg Q6H PRN Administration FEVER OR PAIN Albuterol/Ipratropium 1 amp 03/31/16 06:00 04/04/16 07:01 Duoneb - NEB 1 amp QIDR [facility] Administration Aspirin 81 mg 03/31/16 10:00 04/04/16 09:54 Ecotrin - PO 81 mg DAILY [facility] Administration Atorvastatin Calcium 10 mg 03/31/16 22:00 04/03/16 21:23 Lipitor - PO 10 mg HS DIXON Administration Bisacodyl 5 mg 03/31/16 02:22 04/02/16 10:51 Dulcolax - PO 5 mg DAILY PRN Administration CONSTIPATION Metronidazole 100 mls @ 100 mls/hr 03/31/16 13:15 04/04/16 09:53 Flagyl 500mg Premixed Ivpb - IVPB 100 mls/hr Q8H-IV DIXON Administration Levofloxacin 100 mls @ 100 mls/hr 03/31/16 13:15 04/04/16 09:53 Levaquin 500 Mg Premixed Ivpb - IVPB 100 mls/hr DAILY DIXON Administration Potassium Chloride 10 meq/ 1,005 mls @ 42 mls/hr 03/31/16 18:00 04/03/16 17:14 Sodium Chloride IVPB 42 mls/hr Q24H DIXON Administration Isosorbide Mononitrate 30 mg 03/31/16 10:00 04/04/16 09:54 Imdur - PO 30 mg DAILY DIXON Administration Labetalol HCl 100 mg 03/31/16 10:00 04/04/16 09:54 Normodyne - PO 100 mg DAILY DIXON Administration Lisinopril 5 mg 03/31/16 10:00 04/04/16 09:54 Prinivil PO 5 mg DAILY DIXON Administration Mirtazapine 7.5 mg 03/31/16 22:00 04/03/16 21:22 Remeron - PO 7.5 mg HS DIXON Administration Mometasone Furoate 1 puff 03/31/16 10:00 04/04/16 09:54 Asmanex 220mcg - IH 1 puff BID DIXON Administration Pantoprazole Sodium 40 mg 03/31/16 10:00 04/04/16 09:54 Protonix - PO 40 mg DAILY DIXON Administration Prednisone 20 mg 04/04/16 10:00 04/04/16 10:44 Deltasone - PO 20 mg BID DIXON Administration Roflumilast 500 mcg 03/31/16 10:00 04/04/16 09:54 Daliresp - PO 500 mcg DAILY DIXON Administration Impression 1. CKD s/p left nephrectomy 2. Colitis 3. copd 4. AAA 5. nephrolithiasis 6. lung mass 7. proteinuria Plan - no new labs - can stop fluids - will need outpt follow up - avoid nsaids - cont with oxygen - steroids with taper - proteinuria workup as outpt - will follow Dr Jimenez
--- NOTE | 2016-04-04 12:44 | PN ---
GI Progress Note Subjective: abdominal pain and bloating improved after taking antibiotics most likely multifactorial including intestinal ischemia, bacterial overgrowth and IBS R> continue Flagyl 250mg tid for 10 days maintain on a low fiber lactose free diet keep well hydrated - Objective Vital Signs: Vital Signs Temperature 98.2 F 04/04/16 09:00 Pulse Rate 89 04/04/16 09:00 Respiratory Rate 18 04/04/16 09:00 Blood Pressure 146/77 04/04/16 09:00 O2 Sat by Pulse Oximetry (%) 99 04/04/16 09:00 Labs: CBC, BMP 04/01/16 06:30 04/01/16 06:30 INR, PTT INR 1.41 (0.82-1.09) H 03/30/16 20:49 Hepatic Panel Total Bilirubin 0.5 mg/dL (0.2-1.0) 04/01/16 06:30 AST 20 U/L (15-37) 04/01/16 06:30 ALT 14 U/L (12-78) D 04/01/16 06:30 Alkaline Phosphatase 47 U/L (45-117) 04/01/16 06:30 Albumin 2.4 g/dl (3.4-5.0) L 04/01/16 06:30 Problem List - Problems (1) Ischemic colitis Assessment/Plan: associated with possible bacterial overgrowth and IBS R> Flagyl 250 mg tid for 10 days Low fiber and lactose free diet keep well hydrated Code(s): K55.9 - VASCULAR DISORDER OF INTESTINE, UNSPECIFIED
[2016-04-04] MEDS: metroNIDAZOLE 250 MG TABLET PO SCH ×2 (13:57→21:30)
--- NOTE | 2016-04-04 14:55 | DS ---
Physical Examination Vital Signs: Vital Signs Temperature 98.2 F 04/04/16 09:00 Pulse Rate 89 04/04/16 09:00 Respiratory Rate 18 04/04/16 09:00 Blood Pressure 146/77 04/04/16 09:00 O2 Sat by Pulse Oximetry (%) 99 04/04/16 09:00 Findings/Remarks: DISCHARGE TOMORROW TO [facility], FAMILY MEETING TONIGHT Constitutional: Yes: Mild Distress Eyes: Yes: WNL HENT: Yes: WNL Neck: Yes: WNL Cardiovascular: Yes: WNL Respiratory: Yes: Diminished, On Nasal O2 Gastrointestinal: Yes: Tenderness Renal/: Yes: WNL Musculoskeletal: Yes: Muscle Weakness Extremities: Yes: WNL Edema: Yes Edema: LLE: Trace, RLE: Trace Peripheral Pulses WNL: Yes Integumentary: Yes: WNL Wound/Incision: Yes: Clean/Dry Neurological: Yes: WNL ...Motor Strength: LLE, RLE (WEAKNESS) Psychiatric: Yes: Other Labs: CBC, BMP 04/01/16 06:30 04/01/16 06:30 Discharge Summary Reason For Visit: COLITIS LUNG MASS Current Active Problems Advanced directives, counseling/discussion (Acute) Colitis (Acute) Ischemic colitis (Acute) Lung mass (Acute) Procedures: Principal: CT ABD Other Procedures: LABS/CX Hospital Course: ADMITTED ACUTE COLITIS WITH ACUTE ON CHRONIC COPD EXACERBATION, TREATED WITH IV ABX AND IV STEROIDS, ADVANCED DIRECTIVE DISCUSSED WITH PATIENT AND FAMILY MEETING TO DECIDE ON DNR AND DNI Condition: Poor - Instructions Diet, Activity, Other Instructions: LOW SODIUM Referrals: Shawn Muñiz MD [Primary Care Provider] - Disposition: LONGTERM FACILITY - Home Medications Comprehensive Discharge Medication List: Ambulatory Orders Acetaminophen [Pain Relief] 650 mg PO Q6H PRN 02/16/16 Aspirin [Aspirin EC] 81 mg PO DAILY 02/16/16 Bisacodyl [Correctol] 5 mg PO DAILY PRN 02/16/16 Mometasone Furoate [Asmanex] 1 inh IH BID 02/16/16 Albuterol 2.5/Ipratropium 0.5 [Duoneb -] 1 amp NEB QIDR amp 03/27/16 Atorvastatin Ca [Lipitor] 10 mg PO HS tablet 03/27/16 Isosorbide Mononitrate [Imdur -] 30 mg PO DAILY tab.sr.24h 03/27/16 Labetalol HCl [Normodyne -] 100 mg PO DAILY tablet 03/27/16 Lisinopril [Prinivil] 5 mg PO DAILY tablet 03/27/16 Pantoprazole Sodium [Protonix] 40 mg PO DAILY #30 tablet.dr 03/27/16 Roflumilast [Daliresp -] 500 mcg PO DAILY tablet 03/27/16 Metronidazole [Flagyl -] 250 mg PO TID tablet 04/04/16 Mirtazapine [Remeron -] 7.5 mg PO HS tablet 04/04/16 Prednisone [Deltasone -] 20 mg PO BID tablet 04/04/16 Vancomycin Oral Solution 250 mg PO Q6HPO ml 04/04/16
[2016-04-04] MEDS: MIRTAZAPINE 15 MG TABLET (FP) PO SCH (21:29)
[2016-04-04] MEDS: ATORVASTATIN CA 10 MG TABLET (FP) PO SCH (21:30)
[2016-04-05] MEDS: metroNIDAZOLE 250 MG TABLET PO SCH (06:03)
[2016-04-05] MEDS: ALBUTEROL SO4 2.5/IPRATROPIUM 0.5 INH SOL 3 ML VIAL.NEB. NEB SCH (06:30)
[2016-04-05 08:27] LABS: CALCIUM 7.9 mg/dL (8.5-10.1); CREATININE 0.8 mg/dL (0.7-1.3)
--- NOTE | 2016-04-05 09:01 | PN ---
Progress Note (short form) - Note Progress Note: CHART REVIEWED LABS /VS STABLE 10AM DISCHARGE TO [facility] Problem List - Problems (1) Colitis Code(s): K52.9 - NONINFECTIVE GASTROENTERITIS AND COLITIS, UNSPECIFIED (2) Lung mass Code(s): R91.8 - OTHER NONSPECIFIC ABNORMAL FINDING OF LUNG FIELD (3) AAA (abdominal aortic aneurysm) without rupture Code(s): I71.4 - ABDOMINAL AORTIC ANEURYSM, WITHOUT RUPTURE (4) Abdominal pain Code(s): R10.9 - UNSPECIFIED ABDOMINAL PAIN Qualifiers: Abdominal location: generalized Qualified Code(s): R10.84 - Generalized abdominal pain (5) Acute on chronic respiratory failure with hypoxia and hypercapnia Code(s): J96.21 - ACUTE AND CHRONIC RESPIRATORY FAILURE WITH HYPOXIA J96.22 - ACUTE AND CHRONIC RESPIRATORY FAILURE WITH HYPERCAPNIA (6) Acute respiratory failure with hypercapnia Code(s): J96.02 - ACUTE RESPIRATORY FAILURE WITH HYPERCAPNIA (7) Asthma exacerbation in COPD Code(s): J44.1 - CHRONIC OBSTRUCTIVE PULMONARY DISEASE W (ACUTE) EXACERBATION J45.901 - UNSPECIFIED ASTHMA WITH (ACUTE) EXACERBATION (8) CAD S/P percutaneous coronary angioplasty Code(s): I25.10 - ATHSCL HEART DISEASE OF [place] CORONARY ARTERY W/O ANG PCTRS Z98.61 - CORONARY ANGIOPLASTY STATUS (9) COPD exacerbation Code(s): J44.1 - CHRONIC OBSTRUCTIVE PULMONARY DISEASE W (ACUTE) EXACERBATION (10) Chronic kidney disease Code(s): N18.9 - CHRONIC KIDNEY DISEASE, UNSPECIFIED (11) Emphysema of lung Code(s): J43.9 - EMPHYSEMA, UNSPECIFIED (12) Advanced directives, counseling/discussion Code(s): Z71.89 - OTHER SPECIFIED COUNSELING
[2016-04-05] MEDS ORDERED: PT OWN MED DRAWER 7, Y5N ONE (09:17)
[2016-04-05 09:18] VITALS: BP 126/62; PULSE 82; TEMP 98
[2016-04-05] MEDS: ROFLUMILAST 500 MCG TABLET PO SCH (09:21)
[2016-04-05] MEDS: LABETALOL HCL 100 MG TABLET (FP) PO SCH (09:21)
[2016-04-05] MEDS: ASPIRIN COATED 81 MG TABLET.EC PO SCH (09:21)
[2016-04-05] MEDS: predniSONE 20 MG TABLET (UD) PO SCH (09:21)
[2016-04-05] MEDS: ISOSORBIDE MONONITRATE 30 MG TAB.SR.24H (FP) PO SCH (09:21)
[2016-04-05] MEDS: LISINOPRIL 5 MG TABLET (FP) PO SCH (09:22)
[2016-04-05] MEDS: PANTOPRAZOLE 40 MG TABLET (FP) PO SCH (09:22)
[2016-04-05] MEDS: MOMETASONE FUROATE 220 MCG/IH INHALER IH SCH (10:30)
== END 2016-04-05 10:46 | DRG 393 ==
LOC: JER 19:12 → UNDOADMIN 03-31 00:59 → JERBED 03-31 00:59 → J8W 03-31 02:11 → JERBED 03-31 02:11 → J8W 03-31 02:19 → JERBED 03-31 02:19
PROVIDERS: ADMIT Family Medicine; ATTEND Family Medicine
PROC: 3E0F7GC Introduction of Other Therapeutic Substance into Respiratory Tract, Via Natural or Artificial Opening (ICD-10-PCS; principal; 2016-04-01)
DX: K55.9 Vascular disorder of intestine, unspecified (principal); J96.21 Acute and chronic respiratory failure with hypoxia; J96.22 Acute and chronic respiratory failure with hypercapnia; J44.1 Chronic obstructive pulmonary disease with (acute) exacerbation; I25.10 Atherosclerotic heart disease of native coronary artery without angina pectoris; E78.5 Hyperlipidemia, unspecified; J44.9 Chronic obstructive pulmonary disease, unspecified; N20.0 Calculus of kidney; D64.9 Anemia, unspecified; R91.8 Other nonspecific abnormal finding of lung field; I71.4 Abdominal aortic aneurysm, without rupture; I12.9 Hypertensive chronic kidney disease with stage 1 through stage 4 chronic kidney disease, or unspecified chronic kidney disease; N18.9 Chronic kidney disease, unspecified; J45.909 Unspecified asthma, uncomplicated; K52.9 Noninfective gastroenteritis and colitis, unspecified; K21.9 Gastro-esophageal reflux disease without esophagitis; E11.9 Type 2 diabetes mellitus without complications; Z99.81 Dependence on supplemental oxygen; Z95.5 Presence of coronary angioplasty implant and graft; Z90.5 Acquired absence of kidney; Z87.891 Personal history of nicotine dependence; Z71.89 Other specified counseling
CPT/HCPCS: 36415; 71010-TC; 71250-TC; 74176-TC; 80048; 80053; 81003; 81015; 82272; 82378; 82550; 83605; 84484; 85025; 85027; 85610; 85651; 85730; 86140; 87040; 87086; 87324; 87449; 93005; 93010; 94640; 97001-GP; 97116-GP; 99282-25